=== PATIENT | male | born 1940 | race Caucasian/White ===

== ENCOUNTER 2016-10-12 09:52 | Inpatient (IN) | payer OTHER ==
[~2016-10-12] VITALS: Ht 182.9 cm; Wt 98.4 kg
--- NOTE | 2016-10-12 10:02 | NUR ---
76 Y/O MALE C/O CONSTIPATION AND INTERMITTENT LOWER ABDOMINAL PAIN SINCE MONDAY. HAS TAKEN MAG CITRATE AND DUCALAX WITH NO RELIEF. TODAY HAS HAD 1/2 BOTTLE MAG CITRATE WITH NO RESULTS. PT STATES HE IS NAUSEOUS AND HAS NOT HAD ANY APPETITE. DENIES DIFFICULTY URINATING. AFEBRILE. PT ALSO STATES HE IS NOT ABLE TO PASS GAS SINCE SYMPTOMS STARTED
--- NOTE | 2016-10-12 10:55 | NUR ---
PT TO ROOM 5 VIA W/C. ASSISTED TO STRETCHER. CHANGED INTO GOWN. AWAITING EVAL.
--- NOTE | 2016-10-12 11:00 | NUR ---
DANA SALVADOR IN FOR EVAL
--- NOTE | 2016-10-12 11:01 | NUR ---
LABS SENT BY FREYA DUMONT
[2016-10-12] MEDS ORDERED: METOPROLOL SUCC25 M1 PO (11:06)
[2016-10-12 11:07] LABS: ABSOLUTE BASOPHIL COUNT 0 /CUMM (0.0-0.2); ABSOLUTE EOSINOPHIL COUNT 0 /CUMM (0.0-0.7); ABSOLUTE GRANULOCYTE CT 11.4 /CUMM (1.4-6.5); ABSOLUTE LYMPH COUNT 0.5 /CUMM (1.2-3.4); ABSOLUTE MONOCYTE COUNT 0.1 /CUMM (0.10-0.60); BASOPHIL % 0.3 % (0.0-2.0); EOSINOPHIL % 0 % (0-5); HEMATOCRIT 47.2 % (42-52); MEAN CORPUSCULAR HGB 29.7 PG (27.0-31.0); MEAN CORPUSCULAR HGB CONC 33.5 G/DL (33.0-37.0); MEAN CORPUSCULAR VOLUME 88.6 FL (80.0-94.0); MEAN PLATELET VOLUME 8.3 FL (7.4-10.4); PLATELET COUNT 199 /CUMM (130-400); RBC DISTRIBUTION WIDTH 13.5 % (11.5-14.5); RED BLOOD CELL CT 5.33 /CUMM (4.70-6.10); WHITE BLOOD CELL COUNT 12.1 /CUMM (4.8-10.8)
[2016-10-12] MEDS ORDERED: ASPIRIN81 M4 PO (11:07)
[2016-10-12] MEDS ORDERED: OSTEO BI-FLEX1 EACH PO (11:07)
[2016-10-12] MEDS ORDERED: SAW PALMETTO160 M2 PO (11:07)
[2016-10-12] MEDS ORDERED: PRAVASTATIN SOD40 M2 PO (11:07)
--- NOTE | 2016-10-12 11:07 | ED GI/GU/ABDOMINAL COMPLAINT ---
History of Present Illness General Chief Complaint: Abdominal Pain/Flank Pain Stated Complaint: ABDOMINAL PAIN,CONSTIPATION Source: patient, old records Exam Limitations: no limitations Vital Signs & Intake/Output Vital Signs & Intake/Output Vital Signs Date Time Temp Pulse Resp B/P B/P Pulse O2 O2 Flow FiO2 Mean Ox Delivery Rate 10/12 1422 98.0 73 20 160/80 98 Room Air 10/12 1313 68 16 160/82 96 Room Air 10/12 1242 96.8 72 20 190/100 10/12 1219 190/100 10/12 1217 96.8 72 20 212/93 97 Room Air 10/12 1048 70 20 200/104 96 Room Air 10/12 0957 96.8 78 16 191/107 96 Room Air Allergies Coded Allergies: NO KNOWN ALLERGIES (NKDA) (10/13/10) Reconcile Medications Aspirin (Aspirin*) 81 MG TAB.CHEW 1 TAB PO DAILY HEART HEALTH (Reported) Glucosamine HCl/Chondr Gomez A Na (Osteo Bi-Flex Caplet) 250 MG-200 MG TABLET 1 TAB PO DAILY SUPPLEMENT (Reported) Metoprolol Succinate 25 MG TAB 1 TAB PO DAILY HEART (Reported) Pravastatin Sodium 40 MG TABLET 1.5 TAB PO QPM CHOLESTEROL (Reported) Saw [place] 160 MG CAPSULE 1 CAP PO QPM SUPPLEMENT (Reported) Triage Note: 76 Y/O MALE C/O CONSTIPATION AND INTERMITTENT LOWER ABDOMINAL PAIN SINCE MONDAY. HAS TAKEN MAG CITRATE AND DUCALAX WITH NO RELIEF. TODAY HAS HAD 1/2 BOTTLE MAG CITRATE WITH NO RESULTS. PT STATES HE IS NAUSEOUS AND HAS NOT HAD ANY APPETITE. DENIES DIFFICULTY URINATING. AFEBRILE. PT ALSO STATES HE IS NOT ABLE TO PASS GAS SINCE SYMPTOMS STARTED Triage Nurses Notes Reviewed? yes Onset: Abrupt Duration: minute(s): (3), day(s):, constant, continues in ED Timing: recent history Quality/Severity: moderate, sharpness, severe Location: generalized abdomen Radiation: no radiation Activities at Onset: none No Modifying Factors: none HPI: 76-year-old male comes into emergency room for further evaluation of generalized abdominal pain and no bowel movement in 3 days. Denies any prior abdominal surgeries. Denies any vomiting but has associated nausea. Denies any blood in his stool prior. Denies any fever chills. Denies any chest pain but reports some shortness of breath recently lately. Nothing seems to make the symptoms better or worse. Patient tried magnesium citrate with no relief. Denies any other associated symptoms. (MELISSA CEDENO) Past History Travel History Traveled to [place] past 21 day No Medical History Any Pertinent Medical History? 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 No (MELISSA CEDENO) Review of Systems Review of Systems Constitutional: Reports: no symptoms. EENTM: Reports: no symptoms. Respiratory: Reports: no symptoms. Cardiovascular: Reports: no symptoms. GI: Reports: see HPI. Genitourinary: Reports: no symptoms. Musculoskeletal: Reports: no symptoms. Skin: Reports: no symptoms. Neurological/Psychological: Reports: no symptoms. Hematologic/Endocrine: Reports: no symptoms. Immunologic/Allergic: Reports: no symptoms. All Other Systems: Reviewed and Negative (MELISSA CEDENO) Physical Exam Physical Exam General Appearance: well developed/nourished, alert, awake Head: atraumatic, normal appearance Eyes: Bilateral: normal appearance, EOMI. Ears, Nose, Throat, Mouth: hearing grossly normal, moist mucous membrane Neck: normal inspection Respiratory: no respiratory distress Cardiovascular: regular rate/rhythm, murmur Gastrointestinal: distention, firm Back: normal inspection Extremities: normal range of motion Neurologic/Psych: awake, alert, oriented x 3 Skin: intact, normal color Core Measures ACS in differential dx? No Severe Sepsis Present: No Septic Shock Present: No (MELISSA CEDENO) Progress Differential Diagnosis: AAA, AMI, appendicitis, biliary colic, bowel obstruction , colon cancer, cholecystitis, diverticulitis, epididymitis, gastritis, hepatitis, hernia, ischemic bowel, inflamm bowel dis, pancreatitis, prostatitis, peptic ulcer, PUD/GERD, perforated viscous, pyelonephritis, SBO, ureterolithiasis, urinary retention, UTI/pyelo Plan of Care: Orders Procedure Date/time Status Nothing by Mouth 10/13 B Active CBC WITHOUT DIFFERENTIAL 10/13 06 Active BASIC ELECTROLYTES PLUS BUN&CR 10/13 0600 Active Nothing by Mouth 10/12 D Complete PT Evaluate & Treat 10/12 1649 Active Pathway - chart 10/12 1649 Active Patient Data 10/12 164 Active Admit to inpatient 10/12 1522 Active Vital Signs 10/12 1522 Active Code Status 10/12 1522 Active URINALYSIS 10/12 1055 Complete TROPONIN LEVEL 10/12 1055 Complete LACTIC ACID 10/12 1055 Complete COMPREHENSIVE METABOLIC PANEL 10/12 1055 Complete CBC WITHOUT DIFFERENTIAL 10/12 1055 Complete EKG 10/12 1055 Active VTE Mechanical Prophylaxis 10/12 UNK Active Vital Signs 10/12 UNK Active Intake & Output 10/12 UNK Active Activity/Ambulation 10/12 UNK Active Current Medications Sig/[place] Start time Last Medication Dose Stop Time Status Admin Metoprolol Succinate 25 MG DAILY 10/13 1000 AC (Toprol XL) Heparin Sodium 5,000 UNIT Q8 10/12 2200 AC (Porcine) Dextrose/Sodium 1,000 ML .Q10H 10/12 1645 AC Chloride (D5-Normal Saline) Ondansetron HCl 4 MG Q8P PRN 10/12 1645 AC (Zofran) Laboratory Tests 10/12/16 1355: Lactic Acid Cancelled 10/12/16 1210: Urine Color YEL, Urine Clarity CLEAR, Urine pH 7.0, Ur Specific [place] 1.020, Urine Protein >=300 H, Urine Ketones >=80, Urine Nitrite NEG, Urine Bilirubin NEG, Urine Urobilinogen 0.2, Ur Leukocyte Esterase NEG, Ur Microscopic SEDIMENT EXAMINED, Urine RBC 15-25 H, Urine WBC 15-25 H, Ur Epithelial Cells RARE, Hyaline Casts 1-3 H, Granular Casts RARE H, Urine Mucus MOD H, Urine Hemoglobin MOD H, Urine Glucose NEG 10/12/16 1100: Anion Gap 13, Estimated GFR > 60, BUN/Creatinine Ratio 30.0 H, Glucose 152 H, Lactic Acid 1.5, Calcium 9.0, Total Bilirubin 1.0, AST 24, ALT 37, Alkaline Phosphatase 107, Troponin I < 0.01, Total Protein 7.1, Albumin 4.5, Globulin 2.6 , Albumin/Globulin Ratio 1.7, CBC w Diff NO MAN DIFF REQ, RBC 5.33, MCV 88.6, MCH 29.7, RDW 13.5, MPV 8.3, Gran % 94.2 H, Lymphocytes % 4.4 L, Monocytes % 1.1 L, Eosinophils % 0, Basophils % 0.3, Absolute Granulocytes 11.4 H, Absolute Lymphocytes 0.5 L, Absolute Monocytes 0.1 L, Absolute Eosinophils 0, Absolute Basophils 0, PUBS MCHC 33.5 Diagnostic Imaging: Viewed by Me: CT Scan. Discussed w/RAD: CT Scan. Radiology Impression: EXAM TYPE: CAT - CT ABD & PELVIS W IV CONTRAST EXAMINATION : CT ABDOMEN AND PELVIS WITH CONTRAST CLINICAL INFORMATION: Abdominal pain and distension. COMPARISON: 10/13/2010. TECHNIQUE: Contiguous axial thin section helical images of the abdomen and pelvis were performed following the administration of 93 mL of intravenous Optiray 320. The data set was reformatted in the coronal and sagittal planes and reviewed on an independent workstation. DLP: 597 mGy-cm. FINDINGS: There is dependent atelectasis at both lung bases. The visualized lung bases are otherwise clear. The visualized portions of the heart are unremarkable. The liver is of normal size and attenuation without focal lesions nor intrahepatic biliary ductal dilation. A normal gallbladder is identified. There is no wall thickening or discernible pericholecystic fluid. The spleen, pancreas, adrenal glands are unremarkable. Both kidneys are of normal size and attenuation without hydronephrosis or nephrolithiasis. Following the administration of IV contrast, prompt symmetric nephrograms are displayed. There is no abdominal free fluid. There is neither mesenteric nor retroperitoneal lymphadenopathy. There is dilation to the transverse and descending colon to the sigmoid colon at which there is a dramatic transition zone. There is no wall thickening at this location. There is trace adjacent mesenteric fat stranding.. There is no pelvic free fluid. The urinary bladder is unremarkable. There is neither pelvic nor inguinal lymphadenopathy. Bone windows : Neither sclerotic nor lytic bone lesions are identified. There is moderate degenerative change within the lumbar spine. Bilateral femoral rods are in place. IMPRESSION: Dilation to the transverse and descending colon secondary to a marked transition zone within the sigmoid colon. The etiology for this appearance could be secondary to stricture, infection, inflammation or neoplasm. Correlate with patient history and consider further evaluation via colonoscopy. DICTATED BY: ROMEO WHITTAKER MD DATE/TIME DICTATED:10/12/161201 GATE GUARD:BRANDO DATE/TIME TRANSCRIBED:10/12/161201, SERVICE DATE : 10/12/16 EXAM TYPE: RAD - XRY-PORTABLE CHEST XRAY EXAMINATION: CHEST 1 VIEW CLINICAL INFORMATION: Shortness of breath. COMPARISON: Abdominal radiograph from 11/24/2010. TECHNIQUE: An AP view of the chest is provided. FINDINGS: The cardiac silhouette is not enlarged. The mediastinal and hilar contours are unremarkable. There are neither pleural effusions nor pneumothoraces. There is marked elevation of the left hemidiaphragm with adjacent airspace disease. The osseous structures are unremarkable. 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 DICTATED BY: ROMEO WHITTAKER MD DATE/TIME DICTATED:10/12/161140 GATE GUARD:BRANDO DATE/TIME TRANSCRIBED:10/12/161140 Initial ED EKG: normal intervals, normal p-waves, rate (65), RBBB (MELISSA CEDENO) Departure Departure Disposition: STILL A PATIENT Condition: Stable Clinical Impression Primary Impression: Colonic obstruction Referrals: ONELIA MOYER,MARK Elaine (PCP/Family) Departure Forms: Customer Survey General Discharge Information Admission Note Spoke With: MARY JO MOYER,DANICA Sanderson Documentation of Exam: Documentation of any treatments & extenuating circumstances including Concerns Regarding Discharge (functional status, medication knowledge or non-compliance, living conditions, etc.) that warrant an admission rather than observation: Patient is going to require a colonoscopy by GI. IV fluids. Patient is likely going to require partial colectomy either way with a colostomy bag. Etiology of obstruction is unclear at this time. Patient may need oncology if this is cancerous. Patient would do poorly as an outpatient. (MELISSA CEDENO) PA/CURB BUILDER Co-Sign Statement Statement: ED Attending supervision documentation- [X] I saw and evaluated the patient. I have also reviewed all the pertinent lab results and diagnostic results. I agree with the findings and the plan of care as documented in the PA's/CURB BUILDER's documentation. [X] I have reviewed the ED Record and agree with the PA's/CURB BUILDER's documentation. [] Additions or exceptions (if any) to the PAs/CURB BUILDER's note and plan are summarized below: [] (DARLENE MOYER,GAB)
--- NOTE | 2016-10-12 11:13 | NUR ---
PORT CXR IN PROGRESS
[2016-10-12 11:29] LABS: GRANULOCYTE % 94.2 % (42.2-75.2)
--- NOTE | 2016-10-12 11:37 | NUR ---
PT TO CAT SCAN.
--- NOTE | 2016-10-12 11:47 | RADIOLOGY REPORT ---
EXAMINATION: CHEST 1 VIEW CLINICAL INFORMATION: Shortness of breath. COMPARISON: Abdominal radiograph from 11/24/2010. TECHNIQUE: An AP view of the chest is provided. FINDINGS: The cardiac silhouette is not enlarged. The mediastinal and hilar contours are unremarkable. There are neither pleural effusions nor pneumothoraces. There is marked elevation of the left hemidiaphragm with adjacent airspace disease. The osseous structures are unremarkable. IMPRESSION: Marked elevation of the left hemidiaphragm with adjacent airspace disease, likely ambulatory service representative of passive atelectasis.
--- NOTE | 2016-10-12 11:51 | NUR ---
BACK FROM CAT SCAN
--- NOTE | 2016-10-12 12:13 | NUR ---
PT AMBULATED TO BATHROOM WITH CANE AND STEADY GAIT. URINE TRIO SENT TO LAB.
--- NOTE | 2016-10-12 12:13 | CT SCAN REPORT ---
EXAMINATION: CT ABDOMEN AND PELVIS WITH CONTRAST CLINICAL INFORMATION: Abdominal pain and distension. COMPARISON: 10/13/2010. TECHNIQUE: Contiguous axial thin section helical images of the abdomen and pelvis were performed following the administration of 93 mL of intravenous Optiray 320. The data set was reformatted in the coronal and sagittal planes and reviewed on an independent workstation. DLP: 597 mGy-cm. FINDINGS: There is dependent atelectasis at both lung bases. The visualized lung bases are otherwise clear. The visualized portions of the heart are unremarkable. The liver is of normal size and attenuation without focal lesions nor intrahepatic biliary ductal dilation. A normal gallbladder is identified. There is no wall thickening or discernible pericholecystic fluid. The spleen, pancreas, adrenal glands are unremarkable. Both kidneys are of normal size and attenuation without hydronephrosis or nephrolithiasis. Following the administration of IV contrast, prompt symmetric nephrograms are displayed. There is no abdominal free fluid. There is neither mesenteric nor retroperitoneal lymphadenopathy. There is dilation to the transverse and descending colon to the sigmoid colon at which there is a dramatic transition zone. There is no wall thickening at this location. There is trace adjacent mesenteric fat stranding.. There is no pelvic free fluid. The urinary bladder is unremarkable. There is neither pelvic nor inguinal lymphadenopathy. Bone windows: Neither sclerotic nor lytic bone lesions are identified. There is moderate degenerative change within the lumbar spine. Bilateral femoral rods are in place. IMPRESSION: Dilation to the transverse and descending colon secondary to a marked transition zone within the sigmoid colon. The etiology for this appearance could be secondary to stricture, infection, inflammation or neoplasm. Correlate with patient history and consider further evaluation via colonoscopy.
--- NOTE | 2016-10-12 12:34 | NUR ---
PT ASKING FOR WATER. ADVISED TO REMAIN NPO AT THIS TIME.
--- NOTE | 2016-10-12 14:22 | NUR ---
AWAITING SURGERY TO COME DOWN AND SEE PT. PT AMBULATED TO BATHROOM WITH STEADY GAIT. Informed waiting has been performed.
--- NOTE | 2016-10-12 15:05 | NUR ---
REPORT TAKEN FROM NAIMA LEROY, ASSUMING CARE
--- NOTE | 2016-10-12 15:32 | History & Physical Pre-Op ---
General Information and HPI History of Present Illness: This is a 76-year-old male who presents to the emergency room with progressive abdominal pain and distention. He relates a three-day history of lack of bowel function associated with worsening diffuse pain. He gets crampy pain in waves has become severe enough to prompt evaluation the ER. He has not moved his bowels or most gas through his rectum in 48-72 hours. He denies any recent change to his bowel function prior to the onset of his acute symptoms. There is no blood in the stool. No change in the caliber of his stool. No recent gastrointestinal illnesses. Allergies/Medications Allergies: Coded Allergies: NO KNOWN ALLERGIES (NKDA) (10/13/10) Home Med list Aspirin (Aspirin*) 81 MG TAB.CHEW 1 TAB PO DAILY HEART HEALTH (Reported) Glucosamine HCl/Chondr Gomez A Na (Osteo Bi-Flex Caplet) 250 MG-200 MG TABLET 1 TAB PO DAILY SUPPLEMENT (Reported) Metoprolol Succinate 25 MG TAB 1 TAB PO DAILY HEART (Reported) Pravastatin Sodium 40 MG TABLET 1.5 TAB PO QPM CHOLESTEROL (Reported) Saw [place] 160 MG CAPSULE 1 CAP PO QPM SUPPLEMENT (Reported) Past History Medical History Neurological: NONE EENT: NONE Cardiovascular: hypertension, hyperlipidemia, CARDIAC STENTS HIGH CHOLESTEROL Respiratory: NONE Gastrointestinal: NONE Hepatic: NONE Renal: NONE Musculoskeletal: fracture (bilatera LE), osteoarthritis Psychiatric: NONE Endocrine: NONE Blood Disorders: NONE Cancer(s): NONE 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 positive exertional dyspnea. chronic arthritis bilateral le. abdominal pain per hpi. remainder 12 points neg Exam & Diagnostic Data Last 24 Hrs of Vital Signs/I&O Vital Signs Date Time Temp Pulse Resp B/P B/P Pulse O2 O2 Flow FiO2 Mean Ox Delivery Rate 10/12 1422 98.0 73 20 160/80 98 Room Air 10/12 1313 68 16 160/82 96 Room Air 10/12 1242 96.8 72 20 190/100 10/12 1219 190/100 10/12 1217 96.8 72 20 212/93 97 Room Air 10/12 1048 70 20 200/104 96 Room Air 10/12 0957 96.8 78 16 191/107 96 Room Air Intake & Output 10/12 1600 10/12 0800 10/12 0000 Intake Total Output Total Balance Patient 218 lb Weight Weight Reported by Patient Measurement Method Physical Exam: Gen.: He looks well looks his stated age is overweight but not obese HEENT: Anicteric PERRL EOMI Neck: Supple no adenopathy no thyromegaly no JVD Chest: Regular rate and rhythm clear bilaterally Abd: soft. distended in epigastrum without guarding. tympanitic. no mass. no hernia Ext: no cce Last 24 Hrs of Labs/Cedrick: Laboratory Tests 10/12/16 1355: Lactic Acid Cancelled 10/12/16 1210: Urine Color YEL, Urine Clarity CLEAR, Urine pH 7.0, Ur Specific [place] 1.020, Urine Protein >=300 H, Urine Ketones >=80, Urine Nitrite NEG, Urine Bilirubin NEG, Urine Urobilinogen 0.2, Ur Leukocyte Esterase NEG, Ur Microscopic SEDIMENT EXAMINED, Urine RBC 15-25 H, Urine WBC 15-25 H, Ur Epithelial Cells RARE, Hyaline Casts 1-3 H, Granular Casts RARE H, Urine Mucus MOD H, Urine Hemoglobin MOD H, Urine Glucose NEG 10/12/16 1100: Anion Gap 13, Estimated GFR > 60, BUN/Creatinine Ratio 30.0 H, Glucose 152 H, Lactic Acid 1.5, Calcium 9.0, Total Bilirubin 1.0, AST 24, ALT 37, Alkaline Phosphatase 107, Troponin I < 0.01, Total Protein 7.1, Albumin 4.5, Globulin 2.6 , Albumin/Globulin Ratio 1.7, CBC w Diff NO MAN DIFF REQ, RBC 5.33, MCV 88.6, MCH 29.7, RDW 13.5, MPV 8.3, Gran % 94.2 H, Lymphocytes % 4.4 L, Monocytes % 1.1 L, Eosinophils % 0, Basophils % 0.3, Absolute Granulocytes 11.4 H, Absolute Lymphocytes 0.5 L, Absolute Monocytes 0.1 L, Absolute Eosinophils 0, Absolute Basophils 0, PUBS MCHC 33.[address] Diagnostic Data Other Results CT scan of the abdomen pelvis was personally reviewed. Findings show distention of transverse colon and descending colon with abrupt caliber change at the rectosigmoid junction near the pelvic brim. No mass. No pericolonic inflammatory changes. no abscess. No small bowel dilatation Assessment/Plan Assessment/Plan: Acute colonic obstruction. Etiology is indeterminate differential includes diverticular stricture versus neoplasm. Limited colonoscopy will be arranged for diagnosis and/or temporizing procedure. Case discussed with GI. Hopefully he can be decompressed such that a single-stage colonic resection can be performed. If not, Reynaga's procedure (sigmoid colectomy with end colostomy) will be required. Preoperative evaluation by his bird keeper will be obtained. As Ranked By This Provider Problem List: 1. Colonic obstruction
--- NOTE | 2016-10-12 15:48 | Cons- Gastroenterology ---
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 Source of Information: patient, old records Exam Limitations: no limitations History of Present Illness: 76 y/o male, ASHD with remote cardiac stents (on ASA), HLD, HTN, history of renal stones (type unknown), who presented to the [facility] 10/12/2016 at 9:52 AM, complaining of 3 days of constipation, obstipation, increased abdominal girth, and bilateral abdominal pain "10 out of 10", radiating to the lower back. There was no rectal bleeding or melena. The patient noted nausea without vomiting, and hiccups today. He has not had a baseline colonoscopy. There is no family history of colon cancer. There is no previous abdominal surgery. He tried half a bottle of magnesium citrate and Dulcolax earlier today without relief. Otherwise, he claims he has not had anything to eat or drink for 2 days. The patient claimed that prior to 3 days ago, he had a bowel movement nightly, without any previous change in stool caliber. He denied any fevers, chills, jaundice symptoms of UTI, or URI. He noted decreased appetite over the past couple of days with perhaps lost a few pounds. Upon arrival, he was hypertensive 191/107, P 78, R 16, T 96.8, O2 sat RA 96%. He was given Morphine, Labetalol, & Dilaudid in the ER. His abdominal symptoms are somewhat better after the narcotics, however he still obstipated. Digital rectal exam by the ER reportedly revealed OB-negative contents. He was not impacted. No mass was appreciated. He remains NPO. 10/12/2016: Admission labs- WBC 12.1 (94% gran/11 gran Ab), H/H 15.8/47.2, MCV 88.6, RDW 13.5, PLT 199, glucose 152, BUN/Cr 18/0.6, GFR > 60, normal electrolytes, including HCO3 28 with AG 13, normal lactate 1.5, normal LFTs, including albumin 4.5, globulin 2.6, troponin < 0.01; U/A- clear yellow, 1.020, 7.0, 15-25 WBC, > 80 ket, > 300 prot, negative nitrite, negative esterase 10/12/2016: EKG- NSR @ 65, normal axis, RBBB, without acute ischemia *I personally reviewed the imaging studies with Dr. Bower, of [facility]. 10/12/2016: XRY-PORTABLE CHEST XRAY- Marked elevation of the left hemidiaphragm with adjacent airspace disease, likely motor vehicle field representative of passive atelectasis. 10/12/2016: CT ABD & PELVIS W IV CONTRAST- Dilation to the transverse and descending colon secondary to a marked transition zone within the sigmoid colon. The etiology for this appearance could be secondary to stricture, infection, inflammation or neoplasm. Correlate with patient history and consider further evaluation via colonoscopy. (*As per my review with Dr. Bower on 10/12/16, there is the possibility of a sigmoid volvulus. The cecum appears to be [address], and so he may have an incompetent ileocecal valve). Allergies/Medications Allergies: Coded Allergies: NO KNOWN ALLERGIES (NKDA) (10/13/10) Home Med List: Aspirin (Aspirin*) 81 MG TAB.CHEW 1 TAB PO DAILY HEART HEALTH (Reported) Glucosamine HCl/Chondr Gomez A Na (Osteo Bi-Flex Caplet) 250 MG-200 MG TABLET 1 TAB PO DAILY SUPPLEMENT (Reported) Metoprolol Succinate 25 MG TAB 1 TAB PO DAILY HEART (Reported) Pravastatin Sodium 40 MG TABLET 1.5 TAB PO QPM CHOLESTEROL (Reported) Saw [place] 160 MG CAPSULE 1 CAP PO QPM SUPPLEMENT (Reported) Current Medications: Current Medications Sig/[place] Start time Last Medication Dose Route Stop Time Status Admin Dextrose/Sodium 1,000 ML .Q10H 10/12 1645 AC Chloride IV Heparin Sodium 5,000 UNIT Q8 10/12 2200 AC (Porcine) SC Hydromorphone HCl 0 .STK-MED ONE 10/12 1609 DC .ROUTE Hydromorphone HCl 0.6 MG ONCE ONE 10/12 1545 DC 10/12 IV 10/12 1546 1612 Hydromorphone HCl 0.6 MG ONCE ONE 10/12 1330 DC 10/12 IV 10/12 1331 1322 Hydromorphone HCl 0 .STK-MED ONE 10/12 1323 DC .ROUTE Labetalol HCl 10 MG ONCE ONE 10/12 1245 DC 10/12 IV 10/12 1246 1242 Labetalol HCl 0 .STK-MED ONE 10/12 1242 DC IV Metoprolol Succinate 25 MG DAILY 10/13 1000 AC PO Morphine Sulfate 0 .STK-MED ONE 10/12 1137 DC .ROUTE Morphine Sulfate 2 MG ONCE ONE 10/12 1130 DC 10/12 IV 10/12 1131 1137 Ondansetron HCl 4 MG Q8P PRN 10/12 1645 AC IV Past History Travel History Traveled to [place] past 21 day No Medical History Blood Transfusion Hx: No Neurological: NONE EENT: NONE Cardiovascular: hypertension, hyperlipidemia, CARDIAC STENTS HIGH CHOLESTEROL Respiratory: NONE Gastrointestinal: NONE Hepatic: NONE Renal: NONE Musculoskeletal: fracture (bilateral LE- rods), osteoarthritis Psychiatric: NONE Endocrine: NONE Blood Disorders: NONE Cancer(s): NONE 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 Home Who Do You Live With? spouse Services at Home: None Primary Language: Ukrainian Smoking Status: Former Smoker ETOH Use: denies use Illicit Drug Use: denies illicit drug use Living Will? no Power of Furniture Removalist'S Assistant/HCP? no Other Social History: . Lives with , who unfortunately is ill with lung cancer. Ex-30 pk yr cigarette smoker, D/C 1986. No drugs or EtOH. 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 Functional Ability ADLs Independent: dressing, eating, toileting, bathing. Ambulation: independent IADLs Independent: shopping, housework, finances, food prep, telephone, transportation , medication admin. 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 Review of Systems Constitutional: Reports: unexplained weight loss (few lbs past few days). Denies: chills, diaphoresis, fever, malaise, weakness. EENTM: Denies: blurred vision, double vision, visual changes, eye pain, eye drainage, eye tearing, icterus, ear discharge, ear pain, ear redness, hearing changes, nasal congestion, epistaxis, nasal pain, throat pain, throat swelling, mouth pain, tooth pain. Cardiovascular: Denies: chest pain, edema, orthopena, palpitations, peripheral edema, syncope. Respiratory: Denies: cough, hemoptysis, orthopnea, short of breath, sputum production, stridor, wheezing. GI: Reports: abdominal pain, bloating, constipation, distention, nausea. Denies: diarrhea, bowel incontinence, melena, bloody stool, changes in stool, vomiting, steatorrhea. Genitourinary: Denies: discharge, dysuria, frequency, hematuria, hesitation, nocturia, pain, urgency. Musculoskeletal: Denies: back pain, gout, joint pain, joint swelling, muscle pain, muscle stiffness, neck pain. Skin: Denies: cysts, change in skin color, change in hair/nails, dryness, erythema, jaundice, lesions, lymphangitis, lumps, moles, rash. Neurological/Psychological: Denies: anxiety, ataxia, cognitive dysfunction, confusion, depressed, dementia, emotional problems, headache, numbness, paresthesia, pre-existing deficit, petit mal seizures, tingling, tremors, tonic-clonic seizures, unable to move lower ext , unable to move upper ext, weakness. Hematologic/Endocrine: Denies: bruising, bleeding, polyuria, polydipsia. Immunologic/Allergic: Denies: splenectomy, HIV/AIDS, lymphadenopathy. All Other Systems: Reviewed and Negative Exam & Diagnostic Data Vital Signs and I&O Vital Signs Date Time Temp Pulse Resp B/P B/P Pulse O2 O2 Flow FiO2 Mean Ox Delivery Rate 10/12 1422 98.0 73 20 160/80 98 Room Air 10/12 1313 68 16 160/82 96 Room Air 10/12 1242 96.8 72 20 190/100 10/12 1219 190/100 10/12 1217 96.8 72 20 212/93 97 Room Air 10/12 1048 70 20 200/104 96 Room Air 10/12 0957 96.8 78 16 191/107 96 Room Air Intake & Output 10/12 1600 10/12 0400 / 1600 10/11 0400 10/10 1600 10/10 0400 Intake Total Output Total Balance Patient 218 lb Weight Weight Reported by Patient Measurement Method Physical Exam: Well-developed, well-nourished male, in no apparent distress (although he received pain medications approximately 2 hours prior to my exam). Sclera anicteric. Conjunctiva pink. Oropharynx clear. Dry mucus membranes. No oral thrush. No aphthous ulcers. There is no adenopathy, thyromegaly, or JVD. No peripheral stigmata of inflammatory bowel disease or chronic liver disease on exam. No spiders on the anterior chest wall. No gynecomastia. No CVA tenderness. Lungs: clear to A&P, with decreased BS atthe left base. No wheezing, rales, or rhonchi. Heart exam: regular rate rhythm, S1 and S2, without any murmur. Abdominal exam: Hypoactive bowel sounds, moderately distended belly, tympanitic to percussion, currently nontender (received narcotics prir to my exam), without guarding or rebound. No mass. No hernia. No organomegaly. No fluid shift. No pulsatile mass. No epigastric bruit. Digital rectal exam (done by the ER)- reportedly OB-negative contents, not impacted, no mass, no fresh blood. Extremities: without C, C, or E. No palpable cords. Mild DJD.No rash. No palmar erythema. No Dupuytren's contractures. Distal pulses 2+ bilaterally. DTRs 2+ bilaterally. Alert and oriented x 3. Motor 5/5 B/L. Results Pertinent Lab Results: Laboratory Tests 10/12 10/12 1355 1210 Chemistry Lactic Acid Cancelled Urines Urine Color (YEL,AMB,STR) YEL Urine Clarity (CLEAR) CLEAR Urine pH (5.0 - 8.0) 7.0 Ur Specific [place] (1.001 - 1.035) 1.020 Urine Protein (NEG,<30 MG/DL) >=300 H Urine Ketones (NEG) >=80 Urine Nitrite (NEG) NEG Urine Bilirubin (NEG) NEG Urine Urobilinogen (0.1 - 1.0 EU/dl) 0.2 Ur Leukocyte Esterase (NEG) NEG Ur Microscopic SEDIMENT EXAMINED Urine RBC (0 - 5 /HPF) 15-25 H Urine WBC (0 - 2 /HPF) 15-25 H Ur Epithelial Cells (NONE,FEW) RARE Hyaline Casts (0/LPF) 1-3 H Granular Casts (NONE /LPF) RARE H Urine Mucus (FEW,NONE) MOD H Urine Hemoglobin (NEG) MOD H Urine Glucose (N MG/DL) NEG 10/12 1100 Chemistry Sodium (137 - 145 mmol/L) 139 Potassium (3.5 - 5.1 mmol/L) 3.8 Chloride (98 - 107 mmol/L) 98 Carbon Dioxide (22 - 30 mmol/L) 28 Anion Gap (5 - 16) 13 BUN (9 - 20 mg/dL) 18 Creatinine (0.7 - 1.2 mg/dL) 0.6 L Estimated GFR (>60 ml/min) > 60 BUN/Creatinine Ratio (7 - 25 %) 30.0 H Glucose (65 - 99 mg/dL) 152 H Lactic Acid (0.7 - 2.1 mmol/L) 1.5 Calcium (8.4 - 10.2 mg/dL) 9.0 Total Bilirubin (0.2 - 1.3 mg/dL) 1.0 AST (17 - 59 U/L) 24 ALT (21 - 72 U/L) 37 Alkaline Phosphatase (< 127 U/L) 107 Troponin I (<0.11 ng/ml) < 0.01 Total Protein (6.3 - 8.2 g/dL) 7.1 Albumin (3.5 - 5.0 g/dL) 4.5 Globulin (1.9 - 4.2 gm/dL) 2.6 Albumin/Globulin Ratio (1.1 - 2.2 %) 1.7 Hematology CBC w Diff NO MAN DIFF REQ WBC (4.8 - 10.8 /CUMM) 12.1 H RBC (4.70 - 6.10 /CUMM) 5.33 Hgb (14.0 - 18.0 G/DL) 15.8 Hct (42 - 52 %) 47.2 MCV (80.0 - 94.0 FL) 88.6 MCH (27.0 - 31.0 PG) 29.7 RDW (11.5 - 14.5 %) 13.5 Plt Count (130 - 400 /CUMM) 199 MPV (7.4 - 10.4 FL) 8.3 Gran % (42.2 - 75.2 %) 94.2 H Lymphocytes % (20.5 - 51.1 %) 4.4 L Monocytes % (1.7 - 9.3 %) 1.1 L Eosinophils % (0 - 5 %) 0 Basophils % (0.0 - 2.0 %) 0.3 Absolute Granulocytes (1.4 - 6.5 /CUMM) 11.4 H Absolute Lymphocytes (1.2 - 3.4 /CUMM) 0.5 L Absolute Monocytes (0.10 - 0.60 /CUMM) 0.1 L Absolute Eosinophils (0.0 - 0.7 /CUMM) 0 Absolute Basophils (0.0 - 0.2 /CUMM) 0 PUBS MCHC (33.0 - 37.0 G/DL) 33.5 Imaging/Other Studies: 10/12/2016: EKG- NSR @ 65, normal axis, RBBB, without acute ischemia 10/12/2016: XRY-PORTABLE CHEST XRAY- Marked elevation of the left hemidiaphragm with adjacent airspace disease, likely motor vehicle field representative of passive atelectasis. 10/12/2016: CT ABD & PELVIS W IV CONTRAST- Dilation to the transverse and descending colon secondary to a marked transition zone within the sigmoid colon. The etiology for this appearance could be secondary to stricture, infection, inflammation or neoplasm. Correlate with patient history and consider further evaluation via colonoscopy. (*As per my review with Dr. Bower on 10/12/16, there is the possibility of a sigmoid volvulus. The cecum appears to be [address], and so he may have an incompetent ileocecal valve). Assessment/Plan Assessment/Recommendations: 76 y/o male, ASHD with remote cardiac stents (on ASA), HLD, HTN, history of renal stones (type unknown), who presented to the [facility] ER 10/12/2016 at 9:52 AM, complaining of 3 days of constipation, obstipation, increased abdominal girth, and bilateral abdominal pain "10 out of 10", radiating to the lower back. There was no rectal bleeding or melena. The patient noted nausea without vomiting, and hiccups today. He has not had a baseline colonoscopy. There is no family history of colon cancer. There is no previous abdominal surgery. He tried half a bottle of magnesium citrate and Dulcolax earlier today without relief. Otherwise, he claims he has not had anything to eat or drink for 2 days. The patient claimed that prior to 3 days ago, he had a bowel movement nightly, without any previous change in stool caliber. He denied any fevers, chills, jaundice symptoms of UTI, or URI. He noted decreased appetite over the past couple of days with perhaps lost a few pounds. Upon arrival, he was hypertensive 191/107, P 78, R 16, T 96.8, O2 sat RA 96%. He was given Morphine, Labetalol, & Dilaudid in the ER. His abdominal symptoms are somewhat better after the narcotics, however he still obstipated. Digital rectal exam by the ER reportedly revealed OB-negative contents. He was not impacted. No mass was appreciated. He remains NPO. 10/12/2016: Admission labs- WBC 12.1 (94% gran/11 gran Ab), H/H 15.8/47.2, MCV 88.6, RDW 13.5, PLT 199, glucose 152, BUN/Cr 18/0.6, GFR > 60, normal electrolytes, including HCO3 28 with AG 13, normal lactate 1.5, normal LFTs, including albumin 4.5, globulin 2.6, troponin < 0.01; U/A- clear yellow, 1.020, 7.0, 15-25 WBC, > 80 ket, > 300 prot, negative nitrite, negative esterase 10/12/2016: EKG- NSR @ 65, normal axis, RBBB, without acute ischemia *I personally reviewed the imaging studies with Dr. Bower, of [facility]. 10/12/2016: XRY-PORTABLE CHEST XRAY- Marked elevation of the left hemidiaphragm with adjacent airspace disease, likely motor vehicle field representative of passive atelectasis. 10/12/2016: CT ABD & PELVIS W IV CONTRAST- Dilation to the transverse and descending colon secondary to a marked transition zone within the sigmoid colon. The etiology for this appearance could be secondary to stricture, infection, inflammation or neoplasm. Correlate with patient history and consider further evaluation via colonoscopy. (*As per my review with Dr. Bower on 10/12/16, there is the possibility of a sigmoid volvulus. The cecum appears to be [address], and so he may have an incompetent ileocecal valve). *The transition point in the rectosigmoid region seen on CT represents either stricture (benign diverticular vs. malignant) vs. neoplasm vs. volvulus vs. inflammatory. The obstruction appears to be subacute clinically. The above possibilities were discussed with the patient in detail. He is aware that he is at higher than average risk for perforation, based on his anatomy. He is also aware that if procedure is not done, he could spontaneously perforated. The cecum appears to be [address] Informed consent for unprepped flexible sigmoidoscopy vs. colonoscopy was obtained from the patient in the ER, after careful explanation of the risks and benefits. He has been admitted to the surgical service. *SUGGGEST: Maintain NPO. IV fluids. Zofran as needed. Analgesics and BP control per surgery. Unprepped flexible sigmoidoscopy vs. colonoscopy this evening. Hopefully, if this is a sigmoid volvulus, it can be reduced endoscopically. The above was discussed with Dr. Camargo. Consider CT of chest if hiccups persist ( elevated left hemidiaphragm on CXR). Further recommendations to follow (i.e.- eventual stent vs. OR), based on endoscopic findings. Problem List: 1. Colonic obstruction 2. Abdominal pain 3. Nausea 4. Hiccups Copies To: TANYA MOYER,KAREN Elaine; MARY JO MOYER,DANICA Sanderson; ONELIA MOYER,MARK Zamora. Consult Acknowledgment - Thank you for your consult request.
--- NOTE | 2016-10-12 18:30 | NUR ---
PT CARE ASSUMED BY THIS RN AT THIS TIME. PT AROUSABLE TO VERBAL STIMULI, COUGHING AND MOVING AIR FREELY AT THIS TIME. NURSING WILL CONTINUE TO MONITOR.
--- NOTE | 2016-10-12 18:58 | NUR ---
PT SPOUSE KRISTOFER WANTS TO BE UPDATED AT [phone].
--- NOTE | 2016-10-12 19:08 | NUR ---
pt admitted to room 210-2
--- NOTE | 2016-10-12 19:18 | Proc Note Colonoscopy ---
Colonoscopy Procedure Medical History: unchanged Mental Status: alert/oriented Heart/Lung Eval Prior to Sedation: within normal limits Candidate for Sedation? Yes Date of Last Colonoscopy: Never Procedure Date: 10/12/16 Procedure Type: colonoscopy Grievance And Appeals Specialist: JEIMY STUBBS MD ASA Classification: III (III-E) Indications: (*Please refer to GI consult from earlier today) INDX: 76-year-old male, admitted to surgical service with 3 days of abdominal pain, constipation, obstipation, abnormal CT with transition point in upper rectosigmoid. No definite mass seen on CT. No previous colonoscopy. Instrument (Colonoscope): single channel Meds Received: MAC (proph intub per Anesthesia) Patient's Tolerance: good Complications: none Extent Reached: incomplete (80 cm (unprepped; stool; twist) Prep: good (until 80 cm) Procedure: Unprepped baseline colonoscopy to 80 cm (transverse colon), was performed with the Olympus high-definition videocolonoscope, after obtaining informed consent from the patient, with the telemetry monitor and pulse oximeter, with the assistance of Dr. Ly, of [facility]. The unprepped visibility was good until reaching 80 cm (transverse colon). The patient was in the left lateral decubitus position throughout the procedure. The patient was prophylactically intubated by anesthesiology. Direct views of the rectum failed to reveal any external hemorrhoids, fissures, or perianal disease. Digital rectal exam was unremarkable, without any masses. Sphincter tone was normal. Retroflexion in the rectum failed to reveal any internal hemorrhoids, gross proctitis, rectal ulcers, or rectal lesions. The colonic mucosa was carefully inspected, both upon insertion and upon withdrawal of the colonoscope. Withdrawal time was certainly adequate. No definite diverticula were seen. Upon reaching the sigmoid colon at 25 cm, there was a 5 cm length stretch of focal erythema, to 30 cm, with a patent lumen. There was no gross evidence of malignancy. *Most likely, this represented focal ischemia, from a lead point of sigmoid volvulus, which detorqued. There was no black mucosa to suggest gangrene. There were no strictures or gross lesions in this region. Biopsies of this area were deferred, in view of the markedly distended colon proximal to this. Air was aggressively suctioned from the colon. The colonoscope was then advanced to the transverse colon at 80 cm. The mucosa was otherwise normal to this point, without any lesions, significant polyps, or angiodysplasias. At 80 cm in the transverse colon, there appeared to be a second twist that was encountered, with solid stool at this point, and the procedure was terminated. The colonic mucosa proximal to 80 cm was not visualized. Most likely, the patient had a closed loop sigmoid volvulus. The lead point was decompressed, but it appears that the second twist at 80 cm remains. Confirmatory photographs were obtained and placed inside the patient's chart. No active lower GI bleeding was seen, although the presumed ischemic area from 25-30 cm was somewhat friable. The patient was extubated uneventfully by anesthesiology postoperatively. The patient tolerated the procedure well. His abdomen was much softer postoperatively. Impression: 1. 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 Focal erythema and presumed ischemia from 25-30 cm, without any black gangrenous-appearing mucosa. Biopsies deferred. 2. Second twist in transverse colon at 80 cm with solid stool. Procedure terminated at this point. 3. Colonic mucosa proximal to 80 cm not visualized. Abdomen much softer postoperatively. Recommendations: NPO for now. Advise empiric IV Unasyn to cover probable focal sigmoid ischemia. IV fluids. If stable, clears po in a.m. if okay with surgery. Advise repeating two-way abdominal films postoperatively. Further treatment ( conservative observation vs. definitive surgery), as per Dr. Jean. *Further inpatient GI follow up as needed, as the patient will either improve, or need definitive surgery, as above. The case was discussed with the patient and with Dr. Jean, postoperatively. The patient was given my office number. I advised him to call for a semi-elective outpatient baseline screening colonoscopy, next time with a bowel prep, after discharge, as an outpatient. *Please call if further inpatient GI input is needed. Followup Colonscopy Screen In: the pt is to call my office for outpt colonoscopy after discharge CC: TANYA MOYER,KAREN Elaine; MARY JO MOYER,DANICA Sanderson; ONELIA MOYER,MARK Elaine
--- NOTE | 2016-10-12 19:20 | NUR ---
REPORT GIVEN TO RN. DR. STUBBS TO BEDSIDE TO DISCUSS RESULTS AND POC WITH PT.
--- NOTE | 2016-10-12 19:27 | Cons- Cardiology ---
General Information and HPI Consulting Request Date of Consult: 10/12/16 Requested By: DANICA CAMARGO MD Reason for Consult: Preoperative cardiovascular evaluation. Source of Information: patient, family, old records Exam Limitations: clinical condition History of Present Illness: Mr. Curly Matthew is a 76-year-old male with a history of obesity, hypertension, dyslipidemia, conduction and coronary artery disease who presented with a large bowel obstruction for which surgery has been recommended. We are asked to help assess his suitability for the surgery from a cardiac standpoint. He initially presented with unstable angina pectoris in January 2003 and underwent cardiac catheterization after positive stress test that revealed: LM- long and free of disease, LAD-free of disease with a 99% ostial stenosis in the inferior branch of a large bifurcating diagonal, LCx-70% stenosis and distal AV groove, RI-70% proximal stenosis, RCA-dominant, 50% blockage in mid and distal vessel, LV gram revealed normal EF. The following day PCI/LEONARDA (Cypher) successfully placed in the high grade diagonal stenosis. Most recent office visit took place on 04/11/2016 at which time he was without any cardiovascular complaints. He has refused repeated requests for him to undergo stress testing. His last pharmacologic (Adenosine) stress test was performed on 05/27/2008 and revealed no clinical, which cardiographic, or nuclear evidence of ischemia. A small fixed nontransmural defect was observed and posterior wall. Most recent echocardiogram was performed on 03/20/2013 and revealed a normal- sized left ventricle with mild concentric left ventricular hypertrophy, no regional wall motion abnormalities, normal systolic function with an estimated EF of greater than 60%, normal left and right atrial size, normal right ventricular size and function, mild age-related valvular changes, no pericardial effusion, and the normal size aortic root. The Doppler portion of the study revealed trace aortic, mild mitral, and trace tricuspid regurgitation, normal estimated PA systolic pressure of 15 mmHg, and a delayed relaxation left ventricular inflow pattern consistent with stage I diastolic dysfunction. He has reportedly had no recent complaints of chest discomfort, palpitations, shortness of breath, orthopnea, paroxysmal nocturnal dyspnea, dry cough, lower extremity edema, syncope, near syncope, lightheadedness, dizziness, or claudication. Allergies/Medications Allergies: Coded Allergies: NO KNOWN ALLERGIES (NKDA) (10/13/10) Home Med List: Aspirin (Aspirin*) 81 MG TAB.CHEW 1 TAB PO DAILY HEART HEALTH (Reported) Glucosamine HCl/Chondr Gomez A Na (Osteo Bi-Flex Caplet) 250 MG-200 MG TABLET 1 TAB PO DAILY SUPPLEMENT (Reported) Metoprolol Succinate 25 MG TAB 1 TAB PO DAILY HEART (Reported) Pravastatin Sodium 40 MG TABLET 1.5 TAB PO QPM CHOLESTEROL (Reported) [place] 160 MG CAPSULE 1 CAP PO QPM SUPPLEMENT (Reported) Review of Systems Review of Systems: A 14 point system review was obtained and was noncontributory, other than as above. 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 Home Who Do You Live With? spouse Services at Home: None Primary Language: Citizen Of [place] Smoking Status: Former Smoker ETOH Use: denies use Illicit Drug Use: denies illicit drug use Living Will? no Power of Lemon Grower/HCP? no Other Social History: . Lives with , who unfortunately is ill with lung cancer. Ex-30 pk yr cigarette smoker, D/C 1986. No drugs or EtOH. 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 Functional Ability ADLs Independent: dressing, eating, toileting, bathing. Ambulation: independent IADLs Independent: shopping, housework, finances, food prep, telephone, transportation , medication admin. 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 ECHO Results (as available) Date of last Echo 07/22/04 Exam & Diagnostic Data Vital Signs and I&O Vital Signs Date Time Temp Pulse Resp B/P B/P Pulse O2 O2 Flow FiO2 Mean Ox Delivery Rate 10/12 1422 98.0 73 20 160/80 98 Room Air 10/12 1313 68 16 160/82 96 Room Air 10/12 1242 96.8 72 20 190/100 10/12 1219 190/100 10/12 1217 96.8 72 20 212/93 97 Room Air 10/12 1048 70 20 200/104 96 Room Air 10/12 0957 96.8 78 16 191/107 96 Room Air Intake & Output 10/12 1600 10/12 0800 10/12 0000 10/11 1600 10/11 0800 10/11 0000 Intake Total Output Total Balance Patient 218 lb Weight Weight Reported by Patient Measurement Method Physical Exam: Well-developed, obese elderly male in no acute distress. Vital signs: See above. HEENT: Normocephalic, atraumatic, EOMI, slightly dry mucous membranes. Neck: No JVD, no bruits. Lungs: Clear to auscultation bilaterally. Heart: S1, S2 with a grade 2/6 systolic murmur best heard at the base. No gallop, or rub appreciated. PMI fifth ICS at MCL. Abdomen: Non-tender, hypoactive bowel sounds, distended. Extremities: No edema. Labs/[place] Results: Laboratory Tests 10/12 10/12 1355 1210 Chemistry Lactic Acid Cancelled Urines Urine Color (YEL,AMB,STR) YEL Urine Clarity (CLEAR) CLEAR Urine pH (5.0 - 8.0) 7.0 Ur Specific [place] (1.001 - 1.035) 1.020 Urine Protein (NEG,<30 MG/DL) >=300 H Urine Ketones (NEG) >=80 Urine Nitrite (NEG) NEG Urine Bilirubin (NEG) NEG Urine Urobilinogen (0.1 - 1.0 EU/dl) 0.2 Ur Leukocyte Esterase (NEG) NEG Ur Microscopic SEDIMENT EXAMINED Urine RBC (0 - 5 /HPF) 15-25 H Urine WBC (0 - 2 /HPF) 15-25 H Ur Epithelial Cells (NONE,FEW) RARE Hyaline Casts (0/LPF) 1-3 H Granular Casts (NONE /LPF) RARE H Urine Mucus (FEW,NONE) MOD H Urine Hemoglobin (NEG) MOD H Urine Glucose (N MG/DL) NEG 10/12 1100 Chemistry Sodium (137 - 145 mmol/L) 139 Potassium (3.5 - 5.1 mmol/L) 3.8 Chloride (98 - 107 mmol/L) 98 Carbon Dioxide (22 - 30 mmol/L) 28 Anion Gap (5 - 16) 13 BUN (9 - 20 mg/dL) 18 Creatinine (0.7 - 1.2 mg/dL) 0.6 L Estimated GFR (>60 ml/min) > 60 BUN/Creatinine Ratio (7 - 25 %) 30.0 H Glucose (65 - 99 mg/dL) 152 H Lactic Acid (0.7 - 2.1 mmol/L) 1.5 Calcium (8.4 - 10.2 mg/dL) 9.0 Total Bilirubin (0.2 - 1.3 mg/dL) 1.0 AST (17 - 59 U/L) 24 ALT (21 - 72 U/L) 37 Alkaline Phosphatase (< 127 U/L) 107 Troponin I (<0.11 ng/ml) < 0.01 Total Protein (6.3 - 8.2 g/dL) 7.1 Albumin (3.5 - 5.0 g/dL) 4.5 Globulin (1.9 - 4.2 gm/dL) 2.6 Albumin/Globulin Ratio (1.1 - 2.2 %) 1.7 Hematology CBC w Diff NO MAN DIFF REQ WBC (4.8 - 10.8 /CUMM) 12.1 H RBC (4.70 - 6.10 /CUMM) 5.33 Hgb (14.0 - 18.0 G/DL) 15.8 Hct (42 - 52 %) 47.2 MCV (80.0 - 94.0 FL) 88.6 MCH (27.0 - 31.0 PG) 29.7 RDW (11.5 - 14.5 %) 13.5 Plt Count (130 - 400 /CUMM) 199 MPV (7.4 - 10.4 FL) 8.3 Gran % (42.2 - 75.2 %) 94.2 H Lymphocytes % (20.5 - 51.1 %) 4.4 L Monocytes % (1.7 - 9.3 %) 1.1 L Eosinophils % (0 - 5 %) 0 Basophils % (0.0 - 2.0 %) 0.3 Absolute Granulocytes (1.4 - 6.5 /CUMM) 11.4 H Absolute Lymphocytes (1.2 - 3.4 /CUMM) 0.5 L Absolute Monocytes (0.10 - 0.60 /CUMM) 0.1 L Absolute Eosinophils (0.0 - 0.7 /CUMM) 0 Absolute Basophils (0.0 - 0.2 /CUMM) 0 PUBS MCHC (33.0 - 37.0 G/DL) 33.5 Diagnostic Data EKG Results (10/12/2016): sinus rhythm, vertical axis, right bundle-branch block. Minor changes when compared to previous tracing (03/20/2010). 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 Other Results CT abdomen/pelvis (10/12/2016): Dilation to the transverse and descending colon secondary to a marked transition zone within the sigmoid colon. The etiology for this appearance could be secondary to stricture, infection, inflammation or neoplasm. Correlate with patient history and consider further evaluation via colonoscopy. Assessment/Plan Assessment/Plan Mr. Matthew is an elderly male with a history of obesity, HTN, HLD, RBBB, and CAD (s/p successful PCI of high-grade diagonal stenosis for unstable angina pectoris in 2002), who has had no recent cardiovascular complaints, but who presented with signs and symptoms, and imaging evidence of a large bowel obstruction. He is presently undergoing limited colonoscopy to help determine the etiology for his presentation and to try and decompress the colon. The major differential diagnosis, according to surgery, includes diverticular stricture versus neoplasm. Although he has not had any type of noninvasive cardiac evaluation in quite some time, he has fortunately been asymptomatic from a cardiac standpoint, has no acute electrocardiographic changes on today's tracing, and clearly needs to have the surgery performed. As such, it is felt that the potential benefit of proceeding with surgery outweighs the risk.. Recommendations: * Proceed with planned surgery, as necessary. * ICU postoperative monitoring with serial EKGs, troponins, etc. * Continue beta tiffany and statin therapy perioperatively. * Continue to hold Aspirin for the short-term and restart when okay with surgery. * Obtain postoperative echocardiogram to assess his left ventricular systolic/ diastolic function, degree of suspected aortic stenosis, that does not sound severe by physical examination, etc. * Aim to maintain potassium between 4.0-4.5 mEq per liter, check magnesiumand maintained at or above 2.0 mEq per liter, check free T4, TSH, check glycosylated hemoglobin A1c, etc. * Prophylaxis for deep venous thrombosis. Further recommendations will follow, Thank you. Consult Acknowledgment - Thank you for your consult request.
--- NOTE | 2016-10-12 19:42 | NUR ---
DR. MARTÍNEZ TO BEDSIDE FOR EVAL.
--- NOTE | 2016-10-12 19:49 | NUR ---
PER FLOOR NURSE ROOM IS READY, TRANSPORT BOOKED.
--- NOTE | 2016-10-12 20:45 | NUR ---
PT ARRIVED ON FLOOR; VSS; SETTLED INTO BED.
[2016-10-12 20:49] VITALS: BP 162/70
[2016-10-13 06:50] VITALS: BP 178/60
--- NOTE | 2016-10-13 07:41 | PN- General Surgery ---
See Addendum Subjective Subjective: Patient is now hospital day #2, admitted with a colonic obstruction. He is status post colonoscopy yesterday. The findings revealed likelihood of sigmoid volvulus as the source of obstruction. No overt malignancy was identified. Patient has since passed flatus and had 3 soft bowel movements. He reports less bloating and decreased pain. Overall he is feeling much better. He is ambulating and denies headache, dizziness, chest pain, shortness of breath. Objective Vital Signs and I&Os Vital Signs Date Time Temp Pulse Resp B/P B/P Pulse O2 O2 Flow FiO2 Mean Ox Delivery Rate 10/13 0650 99.2 84 18 178/60 92 Room Air 10/12 2056 Room Air 10/12 204 98.1 76 20 162/70 96 10/12 1948 97.8 71 18 150/65 95 Room Air Room Air 10/12 1422 98.0 73 20 160/80 98 Room Air 10/12 1313 68 16 160/82 96 Room Air 10/12 1242 96.8 72 20 190/100 10/12 1219 190/100 10/12 1217 96.8 72 20 212/93 97 Room Air 10/12 1048 70 20 200/104 96 Room Air 10/12 0957 96.8 78 16 191/107 96 Room Air Intake & Output 10/13 0800 10/13 0000 10/12 1600 10/12 0800 10/12 0000 10/11 1600 Intake Total 800 275 Output Total 400 300 Balance 400 -25 Intake, IV 800 275 Intake, Oral 0 Number 1 1 Bowel Movements Output, Urine 400 300 Patient 218 lb 218 lb Weight Weight Reported by Patient Reported by Patient Measurement Method Physical Exam: Gen.: Patient is awake and alert. No acute distress. Cardiac: Regular. Pulmonary: Lungs are clear to auscultation bilaterally. Abdomen: Soft and mildly distended. There is no significant tenderness, rebound , or guarding on exam. Hypoactive bowel sounds were heard. Extremities: Mild 1+ bilateral edema. No calf tenderness. Assessment/Plan Assessment/Plan Patient is a 76-year-old male with a past medical history significant for hypertension, hyperlipidemia, cardiac stents, and nephrolithiasis, who is now hospital day #2 with colonic obstruction, which appears to be resolving. Colonoscopy revealed some evidence of possible sigmoid volvulus as a source of the obstruction. Plan: -Continue nothing by mouth with IV fluids for now. -Patient to be seen by Dr. Jean. Consider starting clears. -GI recommended follow-up x-ray. Will discuss with Dr. Jean since patient is clinically improving. -No pain control as needed as patient is comfortable. -Subcutaneous heparin and Alps for DVT prophylaxis. Patient is ambulatory. -Continue Unasyn as advised by Dr. Whittington for possible ischemia. -Definitive plan will be discussed with Dr. Jean. Update as of 8:45 am: Patient been out of bed to have another bowel movement and was experiencing some abdominal "gas pain" with discomfort radiating to the left chest and left shoulder. It is persisting intermittently at rest as well. Patient denies shortness of breath or palpitations. Heart rate is in the 90s. O2 sat is 95% on room air. Blood pressure is 136/64. Temp is 99.3. Patient does not appear in distress. There are mild crackles at the right base. Lungs are otherwise clear. Will obtain stat EKG and add on troponin to the blood work that was just drawn immediately prior to onset of symptoms. Patient is scheduled to have multiview x-ray of the abdomen, so we will add on a chest x-ray to be done at the same time. Suspect referred gas pains as the source of the pain, however given patient's cardiac history, cannot rule out cardiac source just yet. Dr. Lawson's office was notified of this change. Core Measures/Miscellaneous Venous Thromboembolism VTE Risk Factors: Acute medical illness, Age > 40, Obesity VTE Contraindications: No Contraindications VTE Diagnosis: No Beta Carmen Is Beta Carmen a Home Med? Yes If Yes, Was This Ordered Today? Yes Antibiotics Is Patient on Antibiotics? Yes If Yes: prophylaxis
[2016-10-13 07:54] LABS: ABSOLUTE BASOPHIL COUNT 0 /CUMM (0.0-0.2); ABSOLUTE EOSINOPHIL COUNT 0 /CUMM (0.0-0.7); ABSOLUTE LYMPH COUNT 0.4 /CUMM (1.2-3.4); BASOPHIL % 0 % (0.0-2.0); EOSINOPHIL % 0.1 % (0-5); MEAN PLATELET VOLUME 9.7 FL (7.4-10.4)
[2016-10-13 08:14] LABS: ABSOLUTE GRANULOCYTE CT 17.4 /CUMM (1.4-6.5); ABSOLUTE MONOCYTE COUNT 1.3 /CUMM (0.10-0.60); MEAN CORPUSCULAR HGB 30.4 PG (27.0-31.0); MEAN CORPUSCULAR HGB CONC 33.8 G/DL (33.0-37.0); MEAN CORPUSCULAR VOLUME 89.9 FL (80.0-94.0); PLATELET COUNT 152 /CUMM (130-400); RED BLOOD CELL CT 4.67 /CUMM (4.70-6.10)
[2016-10-13 08:17] LABS: WHITE BLOOD CELL COUNT 19.1 /CUMM (4.8-10.8)
[2016-10-13 08:36] LABS: GRANULOCYTE % 90.9 % (42.2-75.2)
--- NOTE | 2016-10-13 09:00 | NUR ---
0840 PATIENT REPORTED ABDOMINAL PAIN WITH AMBULATION THAT RADIATED FROM THE LOWER AND LEFT ABDOMEN TO THE CHEST, LEFT ARM AND NECK. DANA BE NOTIFIED BP 136/64, HR 86, 95% ON RA, TEMP 99.3, RR 18. EKG DONE ORDERED, LABS ORDERED. NO OTHER S/O DISTRESS NOTED, DANA BE AT THE BEDSIDE TO SEE THE PATIENT.
--- NOTE | 2016-10-13 09:25 | NUR ---
PHYSICAL THERAPY- CONSULT RECEIVED, CHART REVIEWED. PT INDEPENDENTLY AMBULATING IN ED W/ STEADY GAIT MULTIPLE TIMES USING CANE WELL ON UNIT ONCE TRANSFERRED UP TO FLOOR. S/W SURGICAL PA WO AGREES NO P.T. EVAL NEEDED AT THIS TIME, PA TO CANCEL ORDER. P.T. WILL NOT FOLLOW.
--- NOTE | 2016-10-13 10:00 | PN- Cardiology ---
Subjective Subjective: Mr. Matthew is presently feeling improved, but had a fitful night with difficulty sleeping. Following the limited colonoscopy he did have several bowel movements and feels much improved overall. He did, however, have a 3-5 minute episode of 5/10 intensity chest discomfort in his left precordial region described as an "ache" this morning at around 7 AM without radiation or associated symptoms. This fortunately has not recurred. Objective Vital Signs and I&Os Vital Signs Date Time Temp Pulse Resp B/P B/P Pulse O2 O2 Flow FiO2 Mean Ox Delivery Rate 10/13 0909 87 136/64 10/13 08 95 Room Air Room Air 10/13 0650 99.2 84 18 178/60 92 Room Air 10/12 2057 Room Air 10/12 2049 98.1 76 20 162/70 96 10/12 1948 97.8 71 18 150/65 95 Room Air Room Air 10/12 1422 98.0 73 20 160/80 98 Room Air 10/12 1313 68 16 160/82 96 Room Air 10/12 1242 96.8 72 20 190/100 10/12 1219 190/100 10/12 1217 96.8 72 20 212/93 97 Room Air 10/12 1048 70 20 200/104 96 Room Air Intake & Output 10/13 1600 10/13 0800 10/13 0000 10/12 1600 10/12 0000 Intake Total 800 275 Output Total 400 300 Balance 400 -25 Intake, IV 800 275 Intake, Oral 0 Number 1 1 Bowel Movements Output, Urine 400 300 Patient 218 lb 218 lb Weight Weight Reported by Patient Reported by Patient Measurement Method Physical Exam: Well-developed, overweight elderly male in no acute distress. Vital signs: See above. Lungs: Clear to auscultation bilaterally. Heart: S1, S2 with grade 2/6 systolic murmur best heard near the base that is unchanged. Abdomen: Distended with diminished bowel sounds. Current Medications: Current Medications Sig/[place] Start time Last Medication Dose Route Stop Time Status Admin Ampicillin Sodium/ 3,000 MG Q6 10/12 2358 AC 10/13 Sulbactam Sodium IV 10/13 2357 0520 Sodium Chloride 100 ML Chlorhexidine 1 GM .STK-MED ONE 10/13 07 DC Gluconate TOP 10/13 0727 Dextrose/Sodium 1,000 ML .Q20H 10/12 1645 AC 10/13 Chloride IV 0520 Heparin Sodium 5,000 UNIT Q8 10/12 2200 AC 10/13 (Porcine) SC 0520 Hydromorphone HCl 0 .STK-MED ONE 10/12 1609 DC .ROUTE Hydromorphone HCl 0.6 MG ONCE ONE 10/12 1545 DC 10/12 IV 10/12 1546 1612 Hydromorphone HCl 0.6 MG ONCE ONE 10/12 1330 DC 10/12 IV 10/12 1331 1322 Hydromorphone HCl 0 .STK-MED ONE 10/12 1323 DC .ROUTE Labetalol HCl 10 MG ONCE ONE 10/12 1245 DC 10/12 IV 10/12 1246 1242 Labetalol HCl 0 .STK-MED ONE 10/12 1242 DC IV Metoprolol Succinate 25 MG DAILY 10/13 1000 AC 10/13 PO 0909 Morphine Sulfate 4 MG ONCE ONE 10/13 0900 DC 10/13 IV 10/13 0901 0909 Morphine Sulfate 0 .STK-MED ONE 10/12 1137 DC .ROUTE Morphine Sulfate 2 MG ONCE ONE 10/12 1130 DC 10/12 IV 10/12 1131 1137 Ondansetron HCl 4 MG Q8P PRN 10/12 1645 AC 10/13 IV 0255 Results Last 48 Hrs of Labs/Mics: Laboratory Tests 10/13/16 0825: Anion Gap 8, Estimated GFR > 60, BUN/Creatinine Ratio 41.7 H, Troponin I 0.02 10/13/16 0633: CBC w Diff NO MAN DIFF REQ, RBC 4.67 L, MCV 89.9, MCH 30.4, RDW 14.0, MPV 9.7, Gran % 90.9 H, Lymphocytes % 2.1 L, Monocytes % 6.9, Eosinophils % 0.1, Basophils % 0 L, Absolute Granulocytes 17.4 H, Absolute Lymphocytes 0.4 L, Absolute Monocytes 1.3 H, Absolute Eosinophils 0, Absolute Basophils 0, PUBS MCHC 33.8 10/12/16 1355: Lactic Acid Cancelled 10/12/16 1210: Urine Color YEL, Urine Clarity CLEAR, Urine pH 7.0, Ur Specific [place] 1.020, Urine Protein >=300 H, Urine Ketones >=80, Urine Nitrite NEG, Urine Bilirubin NEG, Urine Urobilinogen 0.2, Ur Leukocyte Esterase NEG, Ur Microscopic SEDIMENT EXAMINED, Urine RBC 15-25 H, Urine WBC 15-25 H, Ur Epithelial Cells RARE, Hyaline Casts 1-3 H, Granular Casts RARE H, Urine Mucus MOD H, Urine Hemoglobin MOD H, Urine Glucose NEG 10/12/16 1100: Anion Gap 13, Estimated GFR > 60, BUN/Creatinine Ratio 30.0 H, Glucose 152 H, Lactic Acid 1.5, Calcium 9.0, Total Bilirubin 1.0, AST 24, ALT 37, Alkaline Phosphatase 107, Troponin I < 0.01, Total Protein 7.1, Albumin 4.5, Globulin 2.6 , Albumin/Globulin Ratio 1.7, CBC w Diff NO MAN DIFF REQ, RBC 5.33, MCV 88.6, MCH 29.7, RDW 13.5, MPV 8.3, Gran % 94.2 H, Lymphocytes % 4.4 L, Monocytes % 1.1 L, Eosinophils % 0, Basophils % 0.3, Absolute Granulocytes 11.4 H, Absolute Lymphocytes 0.5 L, Absolute Monocytes 0.1 L, Absolute Eosinophils 0, Absolute Basophils 0, PUBS MCHC 33.5 Recent Imaging Studies: ECG (10/13/2016) sinus rhythm, vertical axis, RBBB, and nondiagnostic inferolateral ST-T wave abnormalities are more pronounced when compared to his previous tracing from 10/12/2016. Assessment/Plan Assessment/Plan 76 y o m with a history of obesity, HTN, HLD, RBBB, and CAD (s/p successful PCI of high-grade diagonal stenosis for unstable angina pectoris in 01/2003), who has had no recent cardiovascular complaints, but who presented with signs and symptoms, and imaging evidence of a large bowel obstruction. Fortunately, from a GI standpoint he has improved following the limited colonoscopy and several subsequent bowel movements. His episode of chest discomfort, however, is of some concern in that he did have some lateral ST-T wave abnormalities observed on his 12-lead electrocardiogram from 8:50 this morning (10/13/2016). Troponins are being measured, but will likely be negative given the brief duration of the discomfort. While it is possible that the discomfort is referred pain from his GI issues, he will need close follow-up. \\ Continue telemetry? Not applicable
--- NOTE | 2016-10-13 14:28 | RADIOLOGY REPORT ---
EXAMINATION: XR CHEST XR ABDOMEN MULTIPLE VIEWS CLINICAL INDICATION: Chest pain, left upper quadrant pain COMPARISON: 10/12/2016 TECHNIQUE: AP and lateral views of the chest. AP supine and upright radiographs of the abdomen. FINDINGS: Chest: Left hemidiaphragm elevation is again noted with adjacent subsegmental basilar atelectasis. No new consolidation is present bilaterally. No evidence of pneumothorax, pleural effusion, or overt pulmonary edema. The cardiac silhouette appears within the upper limits of normal in size for technique. No acute osseous findings are seen. Abdomen: No intra-abdominal free air is seen. There is moderate gaseous distention of much of the colon. There is a more prominent dilated segment of colon which has an inverted U configuration, with the apex directed towards the right upper quadrant on the upper abdominal AP supine view. Colonic diameter measures up to approximately 10 cm in this segment, and findings are concerning for sigmoid volvulus. Mild gaseous distention of a few small bowel loops is noted. No suspicious calcifications are seen. There is partial visualization of intramedullary ez in the bilateral femurs. IMPRESSION: 1. Abdomen: Segment of dilated colon with an inverted U configuration directed towards the right upper quadrant, concerning for sigmoid volvulus. Moderate gaseous distention of the remainder of the colon. 2. Chest: Elevated left hemidiaphragm with adjacent basilar atelectasis.
[2016-10-13 15:04] VITALS: BP 148/64
--- NOTE | 2016-10-13 15:32 | PN- General Surgery ---
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 Given ongoing abdominal pain in LUQ and low chest pain associated with worsened leukocytosis, suspect ischemia to colon is ongoing. Recommend emergent sigmoid colectomy with colostomy.
[2016-10-13 16:04] LABS: PT 15.6 SEC (9.4-12.5); PTT 32 SEC (25-37)
--- NOTE | 2016-10-13 17:21 | NUR ---
PATIENT LEFT FOR OR, VIA DISTRIBUTION OR CHECKLIST COMPLETE, PRE OP SCRUB COMPLETE
--- NOTE | 2016-10-13 19:18 | Operative Report ---
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 He presents for resection Operative/Procedure Note Note: After consent he is brought to the operating room and laid supine. Gen. anesthesia was obtained and his abdomen was prepped and draped. The skin the midline was incised sharply and subcutaneous tissues dissected with cautery. We came down through the fascia with cautery and incised the peritoneum sharply. The wound was fully mobilized and the abdomen explored. There was a massively dilated sigmoid colon emanating up into the left upper quadrant and epigastric region. It was delivered into the wound. There was a clear volvulus which was detorsed. There were adhesions from the sigmoid colon to itself which caused a narrow pedicle through which the volvulus occurred. We took down the peritoneum along the white line of Toldt of the left colon to mobilize the colon up into the wound. We then chose a proximal site of transection. The mesentery was divided with cautery and a VELVET stapler was used to transect the descending colon /sigmoid junction. The mesentery was then taken with the LigaSure device down to the upper rectum. The rectum was then divided with the VELVET stapler. The specimen was passed off the field. Hemostasis achieved with cautery. The rest of the bowel was normal. Small bowel was normal. Colon was normal proximally. Perineal cavity isn't irrigated with normal saline. A site was chosen for a stoma in the left lower quadrant. The rectum was markedly edematous, prohibiting primary anastomosis. The skin ellipse was taken with cutting cautery and the tissues subcutaneously were divided with cautery. A cruciate incision was made over the anterior rectus in the muscle split. Posterior rectus was divided in similar fashion and the left colon brought up through the colostomy site. Midline fascia was then closed. Prior to doing so we replaced the omentum over the small bowel. The fascia was closed with a running 0 Maxon suture. Wound was irrigated with saline and skin closed with rosita. The stoma was then matured in Mendy fashion using interrupted 3-0 Vicryl sutures. Stoma appliance was applied. Sterile dressings were applied. Sponge and needle counts are correct. Findings: Sigmoid volvulus with ischemia but no gangrene CC: ONELIA MOYER,MARK Elaine
--- NOTE | 2016-10-13 21:21 | PN- General Surgery ---
Subjective Subjective: The patient was seen this afternoon postoperatively. He reports that he is comfortable at the current time he has no complaints. He denies any chest pain, palpitations, difficulty breathing. Objective Vital Signs and I&Os Vital Signs Date Time Temp Pulse Resp B/P B/P Pulse O2 O2 Flow FiO2 Mean Ox Delivery Rate 10/13 1504 97.7 75 18 148/64 96 Room Air 10/13 0909 87 136/64 10/13 0800 95 Room Air Room Air 10/13 0650 99.2 84 18 178/60 92 Room Air Intake & Output 10/13 1600 10/13 0810/13 0000 10/12 1600 10/12 0800 10/12 0000 Intake Total 1220 800 275 Output Total 500 400 300 Balance 720 400 -25 Intake, IV 500 800 275 Intake, Oral 720 0 Number 1 1 Bowel Movements Output, Urine 500 400 300 Patient 218 lb 218 lb Weight Weight Reported by Patient Reported by Patient Measurement Method Postoperative EKG with no changes compared to previous studies Postoperative troponin was negative Physical Exam: Gen.: Alert and in no obvious distress Skin: Warm and dry Cardiac: S1-S2 regular Pulmonary: Bilateral breath sounds are equal and decreased at bases Abdomen: Softly distended, appropriate incisional tenderness, bowel sounds are negative. Surgical dressing is clean, dry, and intact. Colostomy is pink and viable with no output or gas in the bag. Extremities: Bilateral lower extremities are warm without calf tenderness or significant edema. Assessment/Plan Assessment/Plan Assessment: 76-year-old male status post Reynaga's procedure for sigmoid volvulus. Postoperatively patient is progressing as expected and his pain is under adequate control. 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 Yes If Yes, Was This Ordered Today? Yes Antibiotics Is Patient on Antibiotics? No
[2016-10-14] VITALS (8 sets, daily range): BP systolic 122–152; BP diastolic 58–73
--- NOTE | 2016-10-14 04:19 | NUR ---
@2100,PT CAME TO ICU FROM PACU ACCOMPANIED BY NURSE.PT DROWSY BUT AROUSABLE.PUPILS REACTIVE.ORIENT PT TO SURROUNDINGS.PLACED ON CONT MONITORING.AVSS. +PP.GEN EDEMA.IVF CONT VIA PIV SITE. ON 2L WITH SATS >95%.HOB ELEVATED.C/O ABD DISCOMFORT AND FOREST WORKER DILAUDID GIVEN WITH GOOD EFFECT.NPO.ABD DSG INTACT WITH MARKED SESA DRAINAGE.NO PRESSURE ULCER NOTED.EKG AND LABS DRAWN AT 3AM.PLN OF CARE REVIEWED
[2016-10-14 04:31] LABS: ABSOLUTE BASOPHIL COUNT 0 /CUMM (0.0-0.2); ABSOLUTE EOSINOPHIL COUNT 0.2 /CUMM (0.0-0.7); ABSOLUTE GRANULOCYTE CT 11.9 /CUMM (1.4-6.5); ABSOLUTE LYMPH COUNT 0.4 /CUMM (1.2-3.4); ABSOLUTE MONOCYTE COUNT 0.6 /CUMM (0.10-0.60); BASOPHIL % 0.1 % (0.0-2.0); EOSINOPHIL % 1.8 % (0-5); GRANULOCYTE % 90.8 % (42.2-75.2); HEMATOCRIT 40.2 % (42-52); MEAN CORPUSCULAR HGB 30.5 PG (27.0-31.0); MEAN CORPUSCULAR VOLUME 92.3 FL (80.0-94.0); MEAN PLATELET VOLUME 9.4 FL (7.4-10.4); RBC DISTRIBUTION WIDTH 14.3 % (11.5-14.5); RED BLOOD CELL CT 4.35 /CUMM (4.70-6.10); WHITE BLOOD CELL COUNT 13.1 /CUMM (4.8-10.8)
[2016-10-14 04:56] LABS: PLATELET COUNT 95 /CUMM (130-400)
--- NOTE | 2016-10-14 07:14 | PN- General Surgery ---
See Addendum Subjective Subjective: The patient was seen this morning postoperatively day #1. He complains of some incisional soreness but reports that the current pain regiment is adequate. He has no other complaints at the current time and denies any chest pain, palpitations, or difficulty breathing. He is without nausea and his ostomy has yet to put out any gas or stool. Objective Vital Signs and I&Os Vital Signs Date Time Temp Pulse Resp B/P B/P Pulse O2 O2 Flow FiO2 Mean Ox Delivery Rate 10/14 0000 97.7 68 28 122/62 99 10/13 2122 95 Nasal 2.0L Cannula 10/13 1504 97.7 75 18 148/64 96 Room Air 10/13 0909 87 136/64 10/13 08 95 Room Air Room Air Intake & Output 10/14 0810/14 0000 10/13 1600 10/13 0800 10/13 0000 10/12 1600 Intake Total 301 816 7003 800 275 Output Total 240 0 500 400 300 Balance 460 300 720 400 -25 Intake, IV 700 300 500 800 275 Intake, Oral 720 0 Number 0 1 1 Bowel Movements Output, Stool 0 Output, Urine 240 500 400 300 Patient 218 lb 218 lb Weight Weight Reported by Patient Reported by Patient Measurement Method Physical Exam: Gen.: Alert and in no obvious distress Skin: Warm and dry Cardiac: S1-S2 regular Pulmonary: Bilateral breath sounds are equal and decreased at bases with some upper respiratory congestion clears with cough. Abdomen: Softly distended, appropriate incisional tenderness, bowel sounds sluggish. Surgical dressing is slightly bloody but otherwise intact. The colostomy is pink and viable with no output in the bag. Extremities: Bilateral lower extremities are warm without calf tenderness or significant edema. Assessment/Plan Assessment/Plan Assessment: 76-year-old male status post Reynaga's for sigmoid volvulus postoperative day 1. The patient is progressing as expected and his pain is under adequate control. Plan: 500 ML dose of normal saline for marginal urine output Follow-up morning laboratory studies Strict I's and O's Continue current pain regiment PRN antiemetics and antipyretics GI and DVT prophylaxis we will discuss with attending the possibility of holding subcutaneous heparin due to platelets at 95 Out of bed to chair Total respiratory care with incentive spirometry, wean O2 Daily colostomy care May have small amounts of ice chips Follow-up cardiology consultation recommendations Okay to transfer to floor per Gen. surgery but will follow-up with cardiology Core Measures/Miscellaneous Venous Thromboembolism VTE Risk Factors: Acute medical illness, Age > 40, Obesity VTE Contraindications: No Contraindications VTE Diagnosis: No Beta Carmen Is Beta Carmen a Home Med? Yes If Yes, Was This Ordered Today? Yes Antibiotics Is Patient on Antibiotics? No
--- NOTE | 2016-10-14 10:29 | PN- Cardiology ---
Subjective Subjective: Yesterday Yesterday's events reviewed. Patient developed recurrent sigmoid volvulus following colonoscopy with abdominal pain and leukocytosis necessitating surgical correction (sigmoid colectomy with end colostomy). I don't think when I Do anything regularly low potassium and she's difficult Objective Vital Signs and I&Os Vital Signs Date Time Temp Pulse Resp B/P B/P Pulse O2 O2 Flow FiO2 Mean Ox Delivery Rate 10/14 08 100 Nasal 2.0L Cannula 10/14 0800 97.1 65 20 150/70 100 Nasal 2.0L Cannula 10/14 0758 97.1 65 20 149/63 10/14 06 97.8 72 18 128/58 10/14 0000 97.7 68 18 122/62 10/14 0000 97.7 68 28 122/62 99 10/13 2122 95 Nasal 2.0L Cannula 10/13 1504 97.7 75 18 148/64 96 Room Air Intake & Output 10/14 1600 10/14 0800 10/14 0000 10/13 1600 10/13 0800 10/13 0000 Intake Total 285 969 3598 800 275 Output Total 240 0 500 400 300 Balance 460 300 720 400 -25 Intake, IV 700 300 500 800 275 Intake, Oral 720 0 Number 0 1 1 Bowel Movements Output, Stool 0 Output, Urine 240 500 400 300 Patient 217 lb 218 lb Weight Weight Reported by Patient Measurement Method Physical Exam: Well-developed, obese elderly male in no acute distress with nasal oxygen in place. Vital signs: See above. Lungs: Clear to auscultation bilaterally. Heart: S1, S2 with grade 2/6 systolic murmur that is unchanged. Abdomen: Clean dry surgical dressing. Extremities: No edema. Current Medications: Current Medications Sig/Aurora Start time Last Medication Dose Route Stop Time Status Admin Acetaminophen 1,000 MG .STK-MED ONE 10/13 1734 DC IV 10/13 1735 Ampicillin Sodium/ 3,000 MG Q6 10/12 2359 DC 10/13 Sulbactam Sodium IV 10/13 2357 1107 Sodium Chloride 100 ML Dextrose/Sodium 1,000 ML .Q20H 10/12 1645 DC 10/13 Chloride IV 0520 Fentanyl Citrate 250 MCG .STK-MED ONE 10/13 1733 DC IM 10/13 1734 Heparin Sodium 5,000 UNIT Q8 10/14 0600 DC 05/12 (Porcine) SC 0525 Heparin Sodium 5,000 UNIT Q8 10/12 2200 DC 10/13 (Porcine) SC 1459 Hydromorphone HCl 50 MG Q24H PRN 10/13 1915 AC 10/13 Sodium Chloride 45 ML IV 2030 Hydromorphone HCl 1 MG Q3 PRN 10/13 1445 DC 10/13 IV 1459 Metoprolol Succinate 25 MG DAILY 10/13 1000 AC 10/13 PO 0909 Midazolam HCl 2 MG .STK-MED ONE 10/13 1734 DC IM 10/13 1735 Ondansetron HCl 4 MG Q6P PRN 10/13 1930 AC IV Ondansetron HCl 4 MG Q8P PRN 10/12 1645 DC 10/13 IV 0255 Pantoprazole Sodium 40 MG DAILY 10/13 191 AC 10/13 IV 2000 Potassium Chloride 10 MEQ Q1H 10/13 1030 DC 10/13 IV 10/13 1131 1459 Potassium Chloride 20 MEQ Q10H 10/13 1030 AC 10/14 Dextrose/Sodium 1,000 ML IV 0525 Chloride Pravastatin Sodium 60 MG 1700 10/14 1700 AC PO Sodium Chloride 500 ML BOLUS ONE 10/14 0715 DC 10/14 IV 10/14 0814 0700 Results Last 48 Hrs of Labs/Mics: Laboratory Tests 10/14/16 0325: Anion Gap 8, Estimated GFR > 60, Glucose 194 H, Calcium 7.7 L, Phosphorus 2.5, Magnesium 2.4 H, Total Bilirubin 0.7, AST 26, ALT 32, Troponin I < 0.01, Albumin 2.8 L 10/14/16 0320: CBC w Diff NO MAN DIFF REQ, RBC 4.35 L, MCV 92.3, MCH 30.5, RDW 14.3, MPV 9.4, Gran % 90.8 H, Lymphocytes % 3.0 L, Monocytes % 4.3, Eosinophils % 1.8, Basophils % 0.1, Absolute Granulocytes 11.9 H, Absolute Lymphocytes 0.4 L, Absolute Monocytes 0.6, Absolute Eosinophils 0.2, Absolute Basophils 0, PUBS MCHC 33.0 10/13/16 1930: Troponin I 0.01 10/13/16 1540: PT 15.6 H, INR 1.49 H, APTT 32 10/13/16 0825: Anion Gap 8, Estimated GFR > 60, BUN/Creatinine Ratio 41.7 H, Magnesium 2.6 H, Troponin I 0.02 10/13/16 0633: CBC w Diff NO MAN DIFF REQ, RBC 4.67 L, MCV 89.9, MCH 30.4, RDW 14.0, MPV 9.7, Gran % 90.9 H, Lymphocytes % 2.1 L, Monocytes % 6.9, Eosinophils % 0.1, Basophils % 0 L, Absolute Granulocytes 17.4 H, Absolute Lymphocytes 0.4 L, Absolute Monocytes 1.3 H, Absolute Eosinophils 0, Absolute Basophils 0, PUBS MCHC 33.8 10/12/16 1355: Lactic Acid Cancelled 10/12/16 1210: Urine Color YEL, Urine Clarity CLEAR, Urine pH 7.0, Ur Specific [place] 1.020, Urine Protein >=300 H, Urine Ketones >=80, Urine Nitrite NEG, Urine Bilirubin NEG, Urine Urobilinogen 0.2, Ur Leukocyte Esterase NEG, Ur Microscopic SEDIMENT EXAMINED, Urine RBC 15-25 H, Urine WBC 15-25 H, Ur Epithelial Cells RARE, Hyaline Casts 1-3 H, Granular Casts RARE H, Urine Mucus MOD H, Urine Hemoglobin MOD H, Urine Glucose NEG 10/12/16 1100: Anion Gap 13, Estimated GFR > 60, BUN/Creatinine Ratio 30.0 H, Glucose 152 H, Lactic Acid 1.5, Calcium 9.0, Total Bilirubin 1.0, AST 24, ALT 37, Alkaline Phosphatase 107, Troponin I < 0.01, Total Protein 7.1, Albumin 4.5, Globulin 2.6 , Albumin/Globulin Ratio 1.7, CBC w Diff NO MAN DIFF REQ, RBC 5.33, MCV 88.6, MCH 29.7, RDW 13.5, MPV 8.3, Gran % 94.2 H, Lymphocytes % 4.4 L, Monocytes % 1.1 L, Eosinophils % 0, Basophils % 0.3, Absolute Granulocytes 11.4 H, Absolute Lymphocytes 0.5 L, Absolute Monocytes 0.1 L, Absolute Eosinophils 0, Absolute Basophils 0, PUBS MCHC 33.5 Assessment/Plan Assessment/Plan 76 y o m with a history of obesity, HTN, HLD, RBBB, and CAD (s/p successful PCI of high-grade diagonal stenosis for unstable angina pectoris in 01/2003), who presented on 10/12/2016 with signs and symptoms, and imaging evidence of a large bowel obstruction. He initially felt improved on 10/13/2016 following a limited colonoscopy and several subsequent bowel movements, but developed recurrent abdominal pain, leukocytosis, and x-ray evidence of recurrent volvulus,etc, necessitating surgical correction (sigmoid colectomy with end colostomy). Presently hemodynamically stable and improved overall with improved WBC count. Continue present regimen. Continue telemetry? Yes
--- NOTE | 2016-10-14 14:31 | NUR ---
REPORT GIVEN TO SUSI MCNAMARA DIST. CALLED 2 BELONGING BAGS PACKED TO BE TAKEN WELL PATIENTS OWN CANE;DILAUDID PUBLIC SAFETY TELECOMMUNICATOR INTACT, D51/2 NS INFUSING AT 100MLS/HR, DIALLO INTACT,MIDLINE DSG NO ADDITIONAL DRAINAGE, PINK INTACT STOMA COLOSTOMY BAG EMPTIED 25MLS;PATENT RFA #18/LH #22;
[2016-10-15 01:36] VITALS: BP 130/78
[2016-10-15 08:01] VITALS: BP 158/78
[2016-10-15 08:40] LABS: ABSOLUTE BASOPHIL COUNT 0 /CUMM (0.0-0.2); ABSOLUTE EOSINOPHIL COUNT 0.2 /CUMM (0.0-0.7); EOSINOPHIL % 1.8 % (0-5); RBC DISTRIBUTION WIDTH 13.9 % (11.5-14.5); WHITE BLOOD CELL COUNT 11.4 /CUMM (4.8-10.8)
[2016-10-15 09:23] LABS: ABSOLUTE GRANULOCYTE CT 9.6 /CUMM (1.4-6.5); ABSOLUTE LYMPH COUNT 0.7 /CUMM (1.2-3.4); ABSOLUTE MONOCYTE COUNT 0.9 /CUMM (0.10-0.60); BASOPHIL % 0.3 % (0.0-2.0); HEMATOCRIT 36.2 % (42-52); MEAN CORPUSCULAR HGB 30.3 PG (27.0-31.0); MEAN CORPUSCULAR HGB CONC 33.6 G/DL (33.0-37.0); MEAN CORPUSCULAR VOLUME 90.3 FL (80.0-94.0); MEAN PLATELET VOLUME 9.6 FL (7.4-10.4); RED BLOOD CELL CT 4.01 /CUMM (4.70-6.10)
[2016-10-15 09:36] LABS: PLATELET COUNT 151 /CUMM (130-400)
[2016-10-15 09:48] LABS: GRANULOCYTE % 84.2 % (42.2-75.2)
--- NOTE | 2016-10-15 09:55 | PN- General Surgery ---
See Addendum Subjective Subjective: POD#2 S/P WHITING'S COMFORTABLE THIS AM "I'M STARVING" DENIES CP, SOB, NO N+V, NO BELCHING Objective Vital Signs and I&Os Vital Signs Date Time Temp Pulse Resp B/P B/P Pulse O2 O2 Flow FiO2 Mean Ox Delivery Rate 10/15 0801 99.7 68 20 158/78 96 Nasal 2.0L Cannula 10/15 0600 20 10/15 0200 20 10/15 0136 98.7 74 18 130/78 98 Nasal 2.0L Cannula 10/15 0000 72 20 10/15 0000 95 Nasal 2.0L Cannula 10/14 1702 99.0 71 16 142/70 98 Nasal Cannula 10/14 1600 Nasal 2.0L Cannula 10/14 1400 68 14 133/58 10/14 1200 76 14 152/65 10/14 1200 98 Nasal 2.0L Cannula 10/14 1157 77 152/65 10/14 1000 75 20 148/73 Intake & Output 10/15 1600 10/15 0800 10/15 0000 10/14 1600 10/14 0800 10/14 0000 Intake Total 139 226 2673 700 300 Output Total 400 350 275 240 0 Balance 428 271 2533 460 300 Intake, IV 102 153 0286 700 300 Intake, Oral 0 0 Number 0 0 Bowel Movements Output, Stool 0 25 0 Output, Urine 400 350 250 240 Patient 217 lb Weight Physical Exam: CV: RRR LUNGS: CLEAR ABD: SOFT, FLAT STOMA-RED, BEEFY BROWN LIQUID STOOL IN OSTOMY NO GAS IN BAG NO TENDERNESS TO PALP, NO GUARDING EXT: WARM, DISTAL CMS INTACT Assessment/Plan Assessment/Plan SRUGICAL IMPROVING PLAN CLEAR 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 Yes If Yes, Was This Ordered Today? Yes Antibiotics Is Patient on Antibiotics? No
--- NOTE | 2016-10-15 11:40 | PN- Cardiology ---
Subjective Subjective: The patient is feeling well. He is now on telemetry. He is going to start clear liquids today. He has no complaints of chest pain or shortness of breath. His cardiac evaluation showed negative cardiac enzymes and he tolerated his surgery well. There have been no arrhythmias. Objective Vital Signs and I&Os Vital Signs Date Time Temp Pulse Resp B/P B/P Pulse O2 O2 Flow FiO2 Mean Ox Delivery Rate 10/15 0801 99.7 68 20 158/78 96 Nasal 2.0L Cannula 10/15 0600 20 10/15 0200 20 10/15 0136 98.7 74 18 130/78 98 Nasal 2.0L Cannula 10/15 0000 72 20 10/15 0000 95 Nasal 2.0L Cannula 10/14 1702 99.0 71 16 142/70 98 Nasal Cannula 10/14 1600 Nasal 2.0L Cannula 10/14 1400 68 14 133/58 10/14 1200 76 14 152/65 10/14 1200 98 Nasal 2.0L Cannula 10/14 1157 77 152/65 Intake & Output 10/15 1600 10/15 0800 10/15 0000 10/14 1600 10/14 0800 10/14 0000 Intake Total 715 569 2299 700 300 Output Total 400 350 275 240 0 Balance 423 881 0564 460 300 Intake, IV 191 631 9351 700 300 Intake, Oral 0 0 Number 0 0 Bowel Movements Output, Stool 0 25 0 Output, Urine 400 350 250 240 Patient 217 lb Weight Physical Exam: HEENT exam is normal Chest is clear Heart is regular with no murmurs Extremities good pulses no edema Abdomen status post Reynaga's Current Medications: Current Medications Sig/Aurora Start time Last Medication Dose Route Stop Time Status Admin Acetaminophen 1,000 MG Q6 10/15 1000 AC N/A 1 UNIT IV 10/16 181 Heparin Sodium 5,000 UNIT Q8 10/15 1400 AC (Porcine) SC Hydromorphone HCl 50 MG Q24H PRN 10/13 191 DC 10/13 Sodium Chloride 45 ML IV 2030 Metoprolol Succinate 25 MG DAILY 10/13 1000 AC 10/14 PO 1157 Ondansetron HCl 4 MG Q6P PRN 10/13 1930 AC IV Pantoprazole Sodium 40 MG DAILY 10/13 191 AC 10/14 IV 1157 Patient Medication 1 UNIT ONE NR 10/15 1015 DC Teaching ED 10/15 1030 Potassium Chloride 20 MEQ Q10H 10/13 1030 AC 10/15 Dextrose/Sodium 1,000 ML IV 0216 Chloride Pravastatin Sodium 60 MG 1700 10/14 1700 AC 10/14 PO 1607 Results Last 48 Hrs of Labs/Mics: Laboratory Tests 10/15/16 0605: Anion Gap 6, Estimated GFR > 60, Glucose 110 H, Calcium 7.5 L, Phosphorus 1.5 L, Magnesium 2.1, Total Bilirubin 0.7, AST 18, ALT 41, Albumin 2.4 L, CBC w Diff NO MAN DIFF REQ, RBC 4.01 L, MCV 90.3, MCH 30.3, RDW 13.9, MPV 9.6, Gran % 84.2 H, Lymphocytes % 5.7 L, Monocytes % 8.0, Eosinophils % 1.8, Basophils % 0.3, Absolute Granulocytes 9.6 H, Absolute Lymphocytes 0.7 L, Absolute Monocytes 0.9 H, Absolute Eosinophils 0.2, Absolute Basophils 0, PUBS MCHC 33.6 10/14/16 0325: Anion Gap 8, Estimated GFR > 60, Glucose 194 H, Calcium 7.7 L, Phosphorus 2.5, Magnesium 2.4 H, Total Bilirubin 0.7, AST 26, ALT 32, Troponin I < 0.01, Albumin 2.8 L 10/14/16 0320: CBC w Diff NO MAN DIFF REQ, RBC 4.35 L, MCV 92.3, MCH 30.5, RDW 14.3, MPV 9.4, Gran % 90.8 H, Lymphocytes % 3.0 L, Monocytes % 4.3, Eosinophils % 1.8, Basophils % 0.1, Absolute Granulocytes 11.9 H, Absolute Lymphocytes 0.4 L, Absolute Monocytes 0.6, Absolute Eosinophils 0.2, Absolute Basophils 0, PUBS MCHC 33.0 10/13/16 1930: Troponin I 0.01 10/13/16 1540: PT 15.6 H, INR 1.49 H, APTT 32 Microbiology 10/13 2229 UPPER RESP: Surveillance Culture - COMP 10/13 2229 GI: Surveillance Culture - COMP Assessment/Plan Assessment/Plan The patient is stable from a cardiac standpoint. He tolerated surgery well with no cardiac issues. He has stable known coronary artery disease. Telemetry can be discontinued and he can be followed up when necessary by cardiology. Continue telemetry? No
[2016-10-15 15:44] VITALS: BP 112/60
[2016-10-15 22:06] VITALS: BP 144/90
--- NOTE | 2016-10-15 22:31 | NUR ---
PT TRANSFERRED FROM TELEMETRY FLOOR, A/OX3, IVF PER ORDER, ALPS, YOEL, R SIDE COCSTOMY, VSS. WILL CONTINUE TO MONITOR
[2016-10-16 06:56] VITALS: BP 146/72
--- NOTE | 2016-10-16 07:01 | PN- General Surgery ---
See Addendum Subjective Subjective: The patient was seen this morning postoperatively day #3. He reports that his pain is under adequate control and he is tolerating a clear liquid diet without nausea. He has no other complaints at the current time and there were no issues overnight per nursing staff. Objective Vital Signs and I&Os Vital Signs Date Time Temp Pulse Resp B/P B/P Pulse O2 O2 Flow FiO2 Mean Ox Delivery Rate 10/16 0656 98.2 64 20 146/72 94 10/15 2206 98.9 65 20 144/90 95 10/15 1544 98.4 63 18 112/60 97 10/15 1144 68 158/78 10/15 0801 99.7 68 20 158/78 96 Nasal 2.0L Cannula Intake & Output 10/16 0800 10/16 0000 10/15 1600 10/15 0800 10/15 0000 10/14 1600 Intake Total 520 1375 598 300 7020 Output Total 620 485 400 350 275 Balance -100 890 259 398 9641 Intake, IV 200 700 833 526 0307 Intake, Oral 320 675 0 0 Number 0 Bowel Movements Output, Stool 20 10 0 25 Output, Urine 600 475 400 350 250 Patient 217 lb Weight Physical Exam: Gen.: Alert and in no obvious distress Skin: Warm and dry Abdomen: Soft, mildly distended, appropriate incisional tenderness, bowel sounds positive. Surgical incision is clean without signs of infection and surgical clips are in place. Colostomy is pink and viable with stool and gas in the bag. Extremities: Bilateral lower extremities are warm without calf tenderness or significant edema. Assessment/Plan Assessment/Plan Assessment: 76-year-old male status post Reynaga's procedure for sigmoid volvulus postoperative day #3. The patient is progressing as expected, his pain is under adequate control, and he is tolerating a clear liquid diet without nausea. His bowel function has slowly been returning. Plan: Hep-Lock IV fluids and DC Barajas catheter Advance to a full liquid diet Out of bed and ambulate Colostomy care GI and DVT prophylaxis Incentive spirometry Strict I's and O's Follow-up morning laboratory studies Core Measures/Miscellaneous Venous Thromboembolism VTE Risk Factors: Acute medical illness, Age > 40, Obesity VTE Contraindications: No Contraindications VTE Diagnosis: No Beta Carmen Is Beta Carmen a Home Med? Yes If Yes, Was This Ordered Today? Yes Antibiotics Is Patient on Antibiotics? No
[2016-10-16 07:49] LABS: ABSOLUTE BASOPHIL COUNT 0 /CUMM (0.0-0.2); ABSOLUTE EOSINOPHIL COUNT 0.5 /CUMM (0.0-0.7); ABSOLUTE GRANULOCYTE CT 7.5 /CUMM (1.4-6.5); ABSOLUTE LYMPH COUNT 0.9 /CUMM (1.2-3.4); ABSOLUTE MONOCYTE COUNT 0.7 /CUMM (0.10-0.60); BASOPHIL % 0.3 % (0.0-2.0); EOSINOPHIL % 4.8 % (0-5); GRANULOCYTE % 77.9 % (42.2-75.2); MEAN CORPUSCULAR HGB 30.1 PG (27.0-31.0); MEAN CORPUSCULAR HGB CONC 33.2 G/DL (33.0-37.0); MEAN CORPUSCULAR VOLUME 90.7 FL (80.0-94.0); MEAN PLATELET VOLUME 8.6 FL (7.4-10.4); PLATELET COUNT 176 /CUMM (130-400); RBC DISTRIBUTION WIDTH 13.4 % (11.5-14.5); WHITE BLOOD CELL COUNT 9.7 /CUMM (4.8-10.8)
[2016-10-16 08:22] LABS: HEMATOCRIT 41.7 % (42-52)
[2016-10-16 14:26] VITALS: BP 152/81
--- NOTE | 2016-10-16 20:56 | NUR ---
BP 184/84, P 67 PT ASSYMPTOMATIC AT THIS TIME. PT ALSO C/O INCREASED ABD PAIN(INCISIONAL) ESPECIALLY WHEN COUGHING. PT INSTRUCTED TO USE PILLOW TO ABD WHEN COUGHING AND SURGICAL PA CONTACTED. SPOKE WITH NIKOLAI CORTEZ AND NOTIFIED OF ABOVE. WILL CONTINUE TO MONITOR.
[2016-10-16 21:43] VITALS: BP 184/84
[2016-10-17 06:13] VITALS: BP 172/82
--- NOTE | 2016-10-17 07:45 | PN- General Surgery ---
See Addendum Subjective Subjective: POD4 feeling well, minimal abd pain helped with percocet, +stool/gas via ostomy, no n /v, tolerating full liquids, low appetite, no cp/sob, +voids, +oob to chair Objective Vital Signs and I&Os Vital Signs Date Time Temp Pulse Resp B/P B/P Pulse O2 O2 Flow FiO2 Mean Ox Delivery Rate 10/17 612 97.9 68 20 172/82 93 Room Air 10/16 2143 98.1 67 20 184/84 95 10/16 1426 98.7 64 20 152/81 96 Room Air 10/16 0947 74 190/86 10/16 0812 Room Air Intake & Output 10/17 0810/17 0000 10/16 1600 10/16 0810/16 0000 10/15 1600 Intake Total 113 073 0406 520 1375 Output Total 3153 157 0876 1315 620 485 Balance -800 -475 -530 -95 -100 890 Intake, IV 10 100 800 200 700 Intake, Oral 240 720 420 320 675 Number 0 Bowel Movements Output, Stool 900 75 200 15 20 10 Output, Urine 355 733 7654 1300 600 475 Physical Exam: GEN: NAD, awake, alert CARD: s1s2 RRR PULM: CTAB ABD: obese, soft, +bs throughout, midline incision with rosita- no drainage or erythema, stoma pink and edematous, + liquid stool and gas in bag, minimally ttp throughout EXT: ALPS on bl, calves soft nt, no edema Assessment/Plan Assessment/Plan POD4 sp harmanns for sig volvulus, stable. PLAN: fu lauren reg diet OOB, ambulate hep SQ on home BP meds- watch BP, if increases may need med adjustment benjy aguilar DC planning Core Measures/Miscellaneous Venous Thromboembolism VTE Risk Factors: Acute medical illness, Age > 40, Obesity VTE Contraindications: No Contraindications VTE Diagnosis: No Beta Carmen Is Beta Carmen a Home Med? Yes If Yes, Was This Ordered Today? Yes Antibiotics Is Patient on Antibiotics? No
--- NOTE | 2016-10-17 09:30 | Patient Discharge Instructions ---
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 no strenuous activity. Acute Coronary Syndrome Inclusion Criteria At DC or during hospital stay patient has or had the following: ACS DIAGNOSIS No Discharge Core Measures Meds if any: Prescribed or Continued at Discharge Meds if any: NOT Prescribed or Continued at Discharge Congestive Heart Failure Inclusion Criteria At DC or during hospital stay patient has or had the following: CHF DIAGNOSIS No Discharge Core Measures Meds if any: Prescribed or Continued at Discharge Meds if any: NOT Prescribed or Continued at Discharge Cerebrovascular accident Inclusion Criteria At DC or during hospital stay patient has or had the following: CVA/TIA Diagnosis No Discharge Core Measures Meds if any: Prescribed or Continued at Discharge Meds if any: NOT Prescribed or Continued at Discharge Venous thromboembolism Inclusion Criteria VTE Diagnosis No VTE Type NONE VTE Confirmed by (Test) NONE Discharge Core Measures - Per Current guidelines, there needs to be overlap - treatment for the first 5 days of Warfarin therapy. - If discharged on Warfarin prior to 5 days of - overlap therapy, the patient will need to be - assessed for post discharge needs including - *Post discharge parental anticoagulation - *Warfarin and/or parental anticoagulation education - *Follow up date to check INR post discharge At least 5 days overlap therapy as Inpatient No Meds if any: Prescribed or Continued at Discharge Note: Overlap Therapy is Warfarin and Anticoagulant Meds if any: NOT Prescribed or Continued at Discharge
[2016-10-17] MEDS ORDERED: PERCOCET 5-3251 EACH PO (09:33)
[2016-10-17 13:54] VITALS: BP 133/75
--- NOTE | 2016-10-17 16:10 | NUR ---
ostomy care: pt seen today for ostomy education and self care - hx reviewed with pt as well as home care and support systems reviewed - pt s/p obstruction requiring ostomy - pt lives at home with whom is currently undergoing tx for lung ca with mets to brain - pt in good spirits and accepting of new ostomy pt educated re: stoma characteristics, risks, complications, and appliance - stated an understanding - pt was educated and able to empty pouch with hands on assistance - 375 cc liquid brown effluent - reported to nursing - will cont with education for dc tomorrow, as pt stated he is tired at this time
[2016-10-17 23:31] VITALS: BP 131/69
[2016-10-18 06:31] VITALS: BP 142/72
--- NOTE | 2016-10-18 09:18 | PN- General Surgery ---
See Addendum Subjective Subjective: The patient was seen this morning postoperatively day #5. He reports that his pain is under adequate control and is no other complaints at the current time. He was mildly nauseous this morning but is otherwise okay. Tolerating a diet and his ostomy is putting out adequate amounts of stool. Objective Vital Signs and I&Os Vital Signs Date Time Temp Pulse Resp B/P B/P Pulse O2 O2 Flow FiO2 Mean Ox Delivery Rate 10/18 0631 97.6 71 20 142/72 94 Room Air 10/17 2331 97.5 71 20 131/69 94 Nasal Cannula 10/17 1651 Nasal 2.0L Cannula 10/17 1640 Room Air 2.0L 10/17 1354 98.1 70 20 133/75 95 Room Air Intake & Output 10/18 1600 10/18 0800 10/18 0000 10/17 1600 10/17 0800 10/17 0000 Intake Total 480 1190 840 250 Output Total 600 1800 1000 1050 475 Balance -120 -610 -160 -800 -475 Intake, IV 10 40 10 Intake, Oral 480 1180 800 240 Number 0 Bowel Movements Output, Stool 400 1250 300 900 75 Output, Urine 200 550 700 150 400 Physical Exam: Gen.: Alert and in no obvious distress Skin: Warm and dry Abdomen: Soft, nondistended, appropriate incisional tenderness, bowel sounds positive. Surgical incision with clips intact and without signs of infection. Ostomy is pink and viable with positive stool and gas in the bag. Extremities: Bilateral lower extremities are warm without calf tenderness or significant edema. Assessment/Plan Assessment/Plan Assessment: 76-year-old male status post Reynaga's procedure for sigmoid volvulus postoperative day #5. The patient's progressing as expected, his pain is under adequate control, and he is tolerating a diet with return of bowel function. Plan: Continue regular diet Daily ostomy care Out of bed and ambulate Continue current pain regiment GI and DVT prophylaxis Discharged to short-term rehabilitation later today Core Measures/Miscellaneous Venous Thromboembolism VTE Risk Factors: Acute medical illness, Age > 40, Obesity VTE Contraindications: No Contraindications VTE Diagnosis: No Beta Carmen Is Beta Carmen a Home Med? Yes If Yes, Was This Ordered Today? Yes Antibiotics Is Patient on Antibiotics? No
--- NOTE | 2016-10-18 09:23 | Surgical Discharge Summary ---
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 Home Who Do You Live With? Spouse Services at Home: None What is Your Primary Language? Czech ETOH Use: denies use Other Addictive Behavior: . Lives with , who unfortunately is ill with lung cancer. Ex-30 pk yr cigarette smoker, D/C 1986. No drugs or EtOH. 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 Review of Systems: See admitting H&P Hospital Course Course Attending Physician: DANICA CAMARGO MD Primary Care Physician: MARK ROUSSEAU MD Hospital Course: The patient was admitted on 10/13/2015 for abdominal pain and diagnosed with sigmoid volvulus. A GI consultation was placed and the need a decompressive colonoscopy later that day. The next morning's abdominal x-rays showed recurrence and worsening sigmoid volvulus. On 10/13/2016 the patient was brought to the operating theater where he underwent a Reynaga's procedure. Postoperatively the patient's bowel function slowly returned and his diet was advanced as tolerated. Laboratory studies and vital signs were stable. He worked with physical therapy and was discharged with uneventful hospital course. Allergies: Coded Allergies: NO KNOWN ALLERGIES (NKDA) (10/13/10) Disposition Summary Disposition Principal Diagnosis: Sigmoid volvulus Additional Diagnosis: None Discharge Disposition: SNF Discharge Instructions General Discharge Information Code Status: Full Code Patient's Diet: Heart healthy diet Patient's Activity: As tolerated with no lifting more than 10 pounds Follow-Up Instructions/Appts: Call the office to be seen in 2 weeks Medications at Discharge Discharge Medications: Continue taking these medications: Metoprolol Succinate (Metoprolol Succinate) 25 MG TAB 1 Tablet ORAL DAILY Qty = 90 Comments: Last Taken: 10/17/16 Time: 1000AM Glucosamine HCl/Chondr Gomez A Na (Osteo Bi-Flex Caplet) 250 MG-200 MG TABLET 1 Tablet ORAL DAILY Comments: NOT GIVEN Aspirin (Aspirin*) 81 MG TAB.CHEW 1 Tablet ORAL DAILY Comments: NOT GIVEN Pravastatin Sodium (Pravastatin Sodium) 40 MG TABLET 1.5 Tablet ORAL Every night Qty = 135 Comments: NOT GIVEN [place] (Saw [place]) 160 MG CAPSULE 1 Capsule ORAL Every night Comments: NOT GIVEN Start taking the following new medications: Oxycodone HCl/Acetaminophen (Percocet 5-325 MG Tablet) 5 MG-325 MG TABLET 1-2 Tablet ORAL EVERY 4-6 HOURS NEEDED as needed for pain control Qty = 36 No Refills Instructions: do not combine with tylenol Comments: Last Taken: 10/17/16 Time: 0945am
[2016-10-18 15:41] VITALS: BP 145/65
[2016-10-18 16:20] VITALS: BP 145/65
== END 2016-10-18 19:00 | DRG 329 ==
LOC: ERH 09:52 → 2NB 15:22 → ERHI 15:22 → ENRESERV 18:58 → 2NB 20:29 → CRI 10-13 19:51 → 1NO 10-14 15:25 → 2NB 10-15 21:26 → ENPENDDIS 10-18 14:10 → 2NB 10-18 19:00
PROVIDERS: Physician Assistant; Physician Assistant Medical; Physician Assistant Surgical; ADMIT Surgery
PROC: 0DJD8ZZ Inspection of Lower Intestinal Tract, Via Natural or Artificial Opening Endoscopic (ICD-10-PCS; 2016-10-12)
PROC: 0DTN0ZZ Resection of Sigmoid Colon, Open Approach (ICD-10-PCS; principal; 2016-10-13)
PROC: 0D1N0Z4 Bypass Sigmoid Colon to Cutaneous, Open Approach (ICD-10-PCS; principal; 2016-10-13)
DX: K56.2 Volvulus (principal); K55.039 Acute (reversible) ischemia of large intestine, extent unspecified; I11.0 Hypertensive heart disease with heart failure; I50.32 Chronic diastolic (congestive) heart failure; E66.9 Obesity, unspecified; Z68.29 Body mass index [BMI] 29.0-29.9, adult; E78.5 Hyperlipidemia, unspecified; I25.10 Atherosclerotic heart disease of native coronary artery without angina pectoris; Z95.5 Presence of coronary angioplasty implant and graft; Z79.82 Long term (current) use of aspirin
CPT/HCPCS: 1NP; 2NBSP; CCU; 36415; 74020; 74177; 81001; 82436; 87070; 87086; 88307; 93005; 93010; 96374; 96375; 97116-GO; 97161-GP; 97530-GO; J0131; J1170; J1644; J2405; J7040; J7042